=== PATIENT | female | born 1940 | race Caucasian/White ===

== ENCOUNTER 2017-02-23 09:07 | Inpatient (IN) ==
--- NOTE | 2017-02-23 09:27 | Emergency Department Note ---
Disposition Clinical Impression: Altered mental status, Fall, Frail elderly, Injury of flank, Hyperglycemia, Ketoacidosis, Renal insufficiency, Duodenal diverticulum, Diverticulosis, Liver lesion, Structural abnormality of kidney, Hyperkalemia, Abnormal EKG, Abnormal urinalysis Disposition: Admitted As Inpatient Referrals: NO,PCP [Primary Care Provider] - Forms: ED Satisfaction Letter General Adult HPI - General Chief complaint: ED Altered Mental Status Stated complaint: increased AMS Time Seen by Provider: 02/23/17 09:09 - History of Present Illness HPI Narrative: 76-year-old female with a history of dementia comes in from home, she lives with her , her daughter and granddaughter here, they are healthcare providers. They report the patient has been somewhat tremulous over the last day or so. She has been more confused than usual and they are concerned about altered mentation. She has a history of chronic back pain but does not take pain medicine for this apart from injectable steroids. The patient fell a few days ago. They report a bruise or injury to her left flank area. There is no history of head trauma directly. No history of unilateral arm weakness or numbness or convulsion. No history of fever or cough chest pain or abdominal pain. There is no history of vomiting or diarrhea. The patient is not known to be diabetic. She is not anticoagulated. There is no history of head injury. Overt confusion is the main issue. A fall is reported which occurred a few days ago with bruising as described. There is no history of upper or lower extremity pain or injury or bleeding. No rashes. No history of neck stiffness or rigidity. The patient reports her mouth is dry. She has no specific complaints otherwise. Pain Scale: 2 - Related Data Home Medications Medication Instructions Recorded Confirmed [place] 1 tab PO DAILY 02/23/17 Calcium Carbonate/Vitamin D3 1 each PO DAILY 02/23/17 02/23/17 [Calcium 600 + Vit D Softgel] Citalopram Hydrobromide 10 mg PO DAILY 02/23/17 02/23/17 [Citalopram HBr] Doxepin HCl 10 mg PO HS 02/23/17 02/23/17 Gabapentin [Neurontin] 300 mg PO QID 02/23/17 02/23/17 Lisinopril/Hydrochlorothiazide 1 each PO DAILY 02/23/17 02/23/17 [Zestoretic 20-12.5 mg Tablet] Melatonin 5 mg PO HS PRN 02/23/17 02/23/17 Memantine HCl/Donepezil HCl 1 each PO DAILY 02/23/17 02/23/17 [Namzaric 28 mg-10 mg Capsule] Metoprolol XL (24 HR) Succ [Toprol 100 mg PO DAILY 02/23/17 02/23/17 XL] Multivit-Min/Iron/Folic/Lutein 1 each PO DAILY 02/23/17 02/23/17 [Centrum Silver Women Tablet] Psyllium Husk [Daily Fiber] 0.52 gm PO DAILY 02/23/17 02/23/17 Allergies Allergy/AdvReac Type Severity Reaction Status Date / Time Penicillins Allergy Hives Verified 02/23/17 12:04 Review of Systems: The patient is confused and is unable to give a complete review of systems, family members are very helpful however and most of the history is obtained from them. Limitations: ROS unobtainable due to patients medical condition Past Medical History - Past Medical History Medical history: Reports: dementia, hypertension - Social History Smoking Status: Never smoker Smokeless Tobacco Status: No Alcohol use: Reports: none Drug use: Reports: none Physical Exam - General Limitations: no limitations General appearance: alert, in no apparent distress - Head Head exam: atraumatic, normocephalic, normal inspection, other (No claire trauma noted to the head.) - Eye Eye exam: Present: normal appearance, PERRL, EOMI. Absent: scleral icterus, conjunctival injection, miosis, mydriasis, periorbital swelling - ENT ENT exam: normal exam, normal oropharynx, mucous membranes moist, TM's normal bilaterally, normal external ear exam - Neck Neck exam: Present: normal inspection, full ROM, trachea midline. Absent: tenderness, meningismus - Chest Chest inspection: Present: symmetric chest wall rise. Absent: tenderness - Respiratory Respiratory exam: Present: normal lung sounds bilaterally. Absent: respiratory distress, wheezes, stridor, accessory muscle use, prolonged expiratory phase - Cardiovascular Cardiovascular exam: Present: regular rate, normal rhythm, normal heart sounds - Abdominal Exam Abdominal exam: Present: soft, Non-Tender, normal bowel sounds. Absent: tenderness, distention, guarding, rebound, rigidity, trauma, pulsatile mass - Extremities Exam Extremities exam: Present: normal inspection, full ROM, normal capillary refill , other (Bilateral upper extremities are without evidence of injury. Good range of motion throughout the wrist and elbows shoulders ankles knees and hips. No claire trauma to the upper or lower extremities is appreciated. All 4 extremities are warm and well perfused without cyanosis or edema. Good muscle strength in general sensation noted. The patient is able to cooperate completely with this exam.). Absent: tenderness, pedal edema, joint swelling, calf tenderness - Expanded Lower Extremity Exam Hip/Pelvis exam: Present: full ROM, pelvis stable. Absent: tenderness, deformity, external rotation, internal rotation Upper leg exam: Present: full ROM. Absent: tenderness, deformity Knee exam: Present: full ROM. Absent: tenderness, deformity Lower leg exam: Present: full ROM. Absent: tenderness, Homans' sign Ankle exam: Present: full ROM. Absent: tenderness Foot/toe exam: Present: full ROM. Absent: tenderness - Back Exam Back exam: Present: normal inspection, full ROM, other (Bruising left flank, significant tenderness noted.). Absent: tenderness, CVA tenderness (R), CVA tenderness (L), vertebral tenderness - Neurological Exam Neurological exam: Present: alert, oriented X3, CN II-XII intact. Absent: motor sensory deficit - Psychiatric Psychiatric exam: Present: normal affect - Skin Skin exam: Present: warm, dry, intact, normal color. Absent: rash, cyanosis, diaphoresis, erythema, pallor, mottled Course Vital Signs Temperature 97.3 F L 02/23/17 09:09 Pulse Rate 78 02/23/17 09:09 Respiratory Rate 18 02/23/17 09:09 Blood Pressure 173/94 02/23/17 09:09 O2 Sat by Pulse Oximetry 93 02/23/17 09:09 Temperature 97.3 F L 02/23/17 09:09 Pulse Rate 75 02/23/17 11:09 Respiratory Rate 18 02/23/17 11:09 Blood Pressure 144/75 02/23/17 11:09 O2 Sat by Pulse Oximetry 97 02/23/17 11:09 Oxygen Delivery Oxygen Delivery Nasal Cannula Medical Decision Making - MDM Narrative Medical decision making narrative: The patient has a glucose of 980, IV saline and an IV insulin drip were initiated. She demonstrates renal insufficiency and is likely significantly dehydrated. The patient has been altered in her mentation. She had a fall, CT scans and chest x-ray do not show acute traumatic findings. Based on her age, and marked metabolic abnormalities, I think the patient needs to be admitted to the hospital. I discussed the case with the hospitalist on-call who has accepted the patient to their care. The patient is currently stable pending admission. - Lab Data Lab results reviewed: Yes I reviewed the patient's lab results. Result diagrams: 02/23/17 09:38 02/23/17 09:38 Lab Results 02/23/17 02/23/17 02/23/17 Range/Units 09:30 09:30 09:38 WBC 9.9 (4.3-11.1) K/mcL RBC 4.63 (3.82-4.97) M/mcL Hgb 13.8 (11.5-15.4) g/dL Hct 42.6 (35.3-44.9) % MCV 92.0 (83.0-100.0) fL MCH 29.8 (28.0-33.3) pg MCHC 32.4 (31.6-35.5) g/dL RDW 13.8 (11.5-14.5) % Plt Count 233 (140-400) K/mcL MPV 12.6 H (9.4-12.4) fL Immature Gran % 0.4 (0-4) % Seg Neutrophils % 84.2 % Lymphocytes % 9.5 % Monocytes % 5.8 % Eosinophils % 0.0 % Basophils % 0.1 % Neutrophils # 8.3 (1.6-8.9) K/mcL Lymphocytes # 0.9 (0.6-4.6) K/mcL Monocytes # 0.6 (0.0-1.3) K/mcL Eosinophils # 0.0 (0.0-0.6) K/mcL Basophils # 0.0 (0.0-0.2) K/mcL PT (9.4-12.1) Seconds INR APTT (26.0-36.0) Seconds Sodium (136-145) mEq/L Potassium (3.5-4.5) mEq/L Chloride (98-109) mEq/L Carbon Dioxide (19-29) mEq/L BUN (7-20) mg/dL Creatinine (0.57-1.11) mg/dL Est GFR ( Amer) (> 60) Est GFR (Non-Af Amer) (> 60) BUN/Creatinine Ratio (6-26) Glucose (70-99) mg/dL Calculated Osmolality (280-300) Lactic Acid (0.5-2.2) mmol/L Calcium (8.6-10.8) mg/dL Total Bilirubin (0.2-1.2) mg/dL Direct Bilirubin (0.0-0.5) mg/dL Indirect Bilirubin (0.0-1.2) mg/dL AST (5-34) Units/L ALT (0-55) Units/L Alkaline Phosphatase (38-126) Units/L Ammonia (18-72) mcmol/L Troponin I (0-0.03) ng/mL C-Reactive Protein (Less than 5) mg/L Serum Total Protein (6.0-8.3) g/dL Albumin (3.5-5.0) g/dL Globulin (2.4-3.5) g/dL Albumin/Globulin Ratio (1.1-2.2) Beta-Hydroxybutyric Acd (0.02-0.27) mmol/L TSH (0.350-4.840) mcIU/mL Urine Color Yellow (Yellow) Urine Clarity Clear (Clear) Urine pH 5.5 (5.0-8.0) pH Units Ur Specific Husser > 1.030 H (1.010-1.025) Urine Protein Negative (Neg-Trace) mg/dL Urine Glucose (UA) >=1000 H (Normal) mg/dL Urine Ketones Trace H (Negative) mg/dL Urine Blood Small H (Negative) Urine Nitrite Negative (Negative) Urine Bilirubin Negative (Negative) Urine Urobilinogen Normal (Normal) mg/dL Ur Leukocyte Esterase Negative (Negative) Urine Microscopic RBC 0-3 (0-3) per hpf Urine Microscopic WBC 0-3 (0-3) per hpf Ur Squamous Epith Cells None Seen (None-Few) per lpf Urine Bacteria None Seen (None-Few) per hpf Hyaline Casts None Seen (None-Few) per lpf Ur Culture Indicated? NO (NO) Salicylates (15-30) mg/dL Urine Opiates Screen Negative (Jzfriv=296) ng/mL Acetaminophen (10-30) mcg/mL Ur Barbiturates Screen Negative (Nkjafc=257) ng/mL Ur Phencyclidine Scrn Negative (Cutoff=25) ng/mL Ur Amphetamines Screen Negative (Ykvcni=2071) ng/mL U Benzodiazepines Scrn Negative (Vgtjbl=376) ng/mL Urine Cocaine Screen Negative (Cutoff= 300) ng/mL U Marijuana (THC) Screen Negative (Cutoff = 50) ng/mL Ethyl Alcohol (0-10) mg/dL 02/23/17 02/23/17 02/23/17 Range/Units 09:38 09:38 09:38 WBC (4.3-11.1) K/mcL RBC (3.82-4.97) M/mcL Hgb (11.5-15.4) g/dL Hct (35.3-44.9) % MCV (83.0-100.0) fL MCH (28.0-33.3) pg MCHC (31.6-35.5) g/dL RDW (11.5-14.5) % Plt Count (140-400) K/mcL MPV (9.4-12.4) fL Immature Gran % (0-4) % Seg Neutrophils % % Lymphocytes % % Monocytes % % Eosinophils % % Basophils % % Neutrophils # (1.6-8.9) K/mcL Lymphocytes # (0.6-4.6) K/mcL Monocytes # (0.0-1.3) K/mcL Eosinophils # (0.0-0.6) K/mcL Basophils # (0.0-0.2) K/mcL PT 10.6 (9.4-12.1) Seconds INR 1.0 APTT 29.3 (26.0-36.0) Seconds Sodium 136 (136-145) mEq/L Potassium 4.9 H (3.5-4.5) mEq/L Chloride 91 L (98-109) mEq/L Carbon Dioxide 26 (19-29) mEq/L BUN 55 H (7-20) mg/dL Creatinine 2.76 H (0.57-1.11) mg/dL Est GFR ( Amer) 20 L (> 60) Est GFR (Non-Af Amer) 17 L (> 60) BUN/Creatinine Ratio 20 (6-26) Glucose 980 H* (70-99) mg/dL Calculated Osmolality 346 H (280-300) Lactic Acid (0.5-2.2) mmol/L Calcium 12.6 H (8.6-10.8) mg/dL Total Bilirubin 1.1 (0.2-1.2) mg/dL Direct Bilirubin 0.3 (0.0-0.5) mg/dL Indirect Bilirubin 0.8 (0.0-1.2) mg/dL AST 29 (5-34) Units/L ALT 54 (0-55) Units/L Alkaline Phosphatase 140 H (38-126) Units/L Ammonia 60 (18-72) mcmol/L Troponin I (0-0.03) ng/mL C-Reactive Protein 41 H (Less than 5) mg/L Serum Total Protein 8.3 (6.0-8.3) g/dL Albumin 4.3 (3.5-5.0) g/dL Globulin 4.0 H (2.4-3.5) g/dL Albumin/Globulin Ratio 1.1 (1.1-2.2) Beta-Hydroxybutyric Acd > 2.00 H (0.02-0.27) mmol/L TSH 1.134 (0.350-4.840) mcIU/mL Urine Color (Yellow) Urine Clarity (Clear) Urine pH (5.0-8.0) pH Units Ur Specific Husser (1.010-1.025) Urine Protein (Neg-Trace) mg/dL Urine Glucose (UA) (Normal) mg/dL Urine Ketones (Negative) mg/dL Urine Blood (Negative) Urine Nitrite (Negative) Urine Bilirubin (Negative) Urine Urobilinogen (Normal) mg/dL Ur Leukocyte Esterase (Negative) Urine Microscopic RBC (0-3) per hpf Urine Microscopic WBC (0-3) per hpf Ur Squamous Epith Cells (None-Few) per lpf Urine Bacteria (None-Few) per hpf Hyaline Casts (None-Few) per lpf Ur Culture Indicated? (NO) Salicylates < 5.0 L (15-30) mg/dL Urine Opiates Screen (Lkxtyu=573) ng/mL Acetaminophen < 1.0 L (10-30) mcg/mL Ur Barbiturates Screen (Nrgrte=403) ng/mL Ur Phencyclidine Scrn (Cutoff=25) ng/mL Ur Amphetamines Screen (Eixdjb=6006) ng/mL U Benzodiazepines Scrn (Ejiems=491) ng/mL Urine Cocaine Screen (Cutoff= 300) ng/mL U Marijuana (THC) Screen (Cutoff = 50) ng/mL Ethyl Alcohol < 10 (0-10) mg/dL 02/23/17 02/23/17 Range/Units 09:38 09:38 WBC (4.3-11.1) K/mcL RBC (3.82-4.97) M/mcL Hgb (11.5-15.4) g/dL Hct (35.3-44.9) % MCV (83.0-100.0) fL MCH (28.0-33.3) pg MCHC (31.6-35.5) g/dL RDW (11.5-14.5) % Plt Count (140-400) K/mcL MPV (9.4-12.4) fL Immature Gran % (0-4) % Seg Neutrophils % % Lymphocytes % % Monocytes % % Eosinophils % % Basophils % % Neutrophils # (1.6-8.9) K/mcL Lymphocytes # (0.6-4.6) K/mcL Monocytes # (0.0-1.3) K/mcL Eosinophils # (0.0-0.6) K/mcL Basophils # (0.0-0.2) K/mcL PT (9.4-12.1) Seconds INR APTT (26.0-36.0) Seconds Sodium (136-145) mEq/L Potassium (3.5-4.5) mEq/L Chloride (98-109) mEq/L Carbon Dioxide (19-29) mEq/L BUN (7-20) mg/dL Creatinine (0.57-1.11) mg/dL Est GFR ( Amer) (> 60) Est GFR (Non-Af Amer) (> 60) BUN/Creatinine Ratio (6-26) Glucose (70-99) mg/dL Calculated Osmolality (280-300) Lactic Acid 2.1 (0.5-2.2) mmol/L Calcium (8.6-10.8) mg/dL Total Bilirubin (0.2-1.2) mg/dL Direct Bilirubin (0.0-0.5) mg/dL Indirect Bilirubin (0.0-1.2) mg/dL AST (5-34) Units/L ALT (0-55) Units/L Alkaline Phosphatase (38-126) Units/L Ammonia (18-72) mcmol/L Troponin I 0.02 (0-0.03) ng/mL C-Reactive Protein (Less than 5) mg/L Serum Total Protein (6.0-8.3) g/dL Albumin (3.5-5.0) g/dL Globulin (2.4-3.5) g/dL Albumin/Globulin Ratio (1.1-2.2) Beta-Hydroxybutyric Acd (0.02-0.27) mmol/L TSH (0.350-4.840) mcIU/mL Urine Color (Yellow) Urine Clarity (Clear) Urine pH (5.0-8.0) pH Units Ur Specific Husser (1.010-1.025) Urine Protein (Neg-Trace) mg/dL Urine Glucose (UA) (Normal) mg/dL Urine Ketones (Negative) mg/dL Urine Blood (Negative) Urine Nitrite (Negative) Urine Bilirubin (Negative) Urine Urobilinogen (Normal) mg/dL Ur Leukocyte Esterase (Negative) Urine Microscopic RBC (0-3) per hpf Urine Microscopic WBC (0-3) per hpf Ur Squamous Epith Cells (None-Few) per lpf Urine Bacteria (None-Few) per hpf Hyaline Casts (None-Few) per lpf Ur Culture Indicated? (NO) Salicylates (15-30) mg/dL Urine Opiates Screen (Wjepqp=554) ng/mL Acetaminophen (10-30) mcg/mL Ur Barbiturates Screen (Zfbfqj=801) ng/mL Ur Phencyclidine Scrn (Cutoff=25) ng/mL Ur Amphetamines Screen (Eahvpm=4550) ng/mL U Benzodiazepines Scrn (Xbnyek=353) ng/mL Urine Cocaine Screen (Cutoff= 300) ng/mL U Marijuana (THC) Screen (Cutoff = 50) ng/mL Ethyl Alcohol (0-10) mg/dL - Radiology Data Radiology results reviewed: Yes I reviewed the patient's radiology results.
[2017-02-23 09:41] LABS: Bilirubin,Urine Negative (Negative); Blood,Urine Small (Negative); Clarity,Urine Clear (Clear); Color,Urine Yellow (Yellow); Glucose,Urine (UA) >=1000 mg/dL (Normal); Ketones,Urine Trace mg/dL (Negative); Leukocyte Esterase,Urine Negative (Negative); Nitrite,Urine Negative (Negative); PH,Urine 5.5 pH Units (5.0-8.0); Protein,Urine Negative (Neg-Trace); Specific Gravity,Urine > 1.030 (1.010-1.025); Urobilinogen,Urine Normal (Normal)
[2017-02-23 09:43] LABS: Bacteria,Urine None Seen per hpf (None-Few); Hyaline Casts,Urine None Seen per lpf (None-Few); RBC,Urine 0-3 per hpf (0-3); Squamous Epithelial Cell,Urine None Seen per lpf (None-Few); WBC,Urine 0-3 per hpf (0-3)
[2017-02-23 09:47] LABS: Amphetamine Screen,Urine Negative ng/mL (Cutoff=1000); Barbiturate Screen,Urine Negative ng/mL (Cutoff=200); Benzodiazepines Screen,Urine Negative ng/mL (Cutoff=200); Cannabinoid Screen,Urine Negative ng/mL (Cutoff = 50); Cocaine Screen,Urine Negative ng/mL (Cutoff= 300); Opiate Screen,Urine Negative ng/mL (Cutoff=300); Phencyclidine Screen,Urine Negative ng/mL (Cutoff=25)
[2017-02-23] MEDS: 0.9 % Sodium Chloride 1,000 ML IVC SCH ×2 (09:47→16:01)
[2017-02-23 09:49] LABS: Basophils % 0.1 %; Hematocrit 42.6 % (35.3-44.9); Hemoglobin 13.8 g/dL (11.5-15.4); Immature Granulocytes % 0.4 % (0-4); Lymphocytes # 0.9 K/mcL (0.6-4.6); Lymphocytes % 9.5 %; Mean Corpuscular HGB Conc 32.4 g/dL (31.6-35.5); Mean Corpuscular Hemoglobin 29.8 pg (28.0-33.3); Mean Platelet Volume 12.6 fL (9.4-12.4); Monocytes # 0.6 K/mcL (0.0-1.3); Monocytes % 5.8 %; Neutrophils # 8.3 K/mcL (1.6-8.9); Platelet Count 233 K/mcL (140-400); Red Blood Count 4.63 M/mcL (3.82-4.97); Red Cell Distribution Width 13.8 % (11.5-14.5); Segmented Neutrophils % 84.2 %
[2017-02-23 09:54] LABS: Prothrombin Time 10.6 Seconds (9.4-12.1)
[2017-02-23 09:56] LABS: Activated Partial Thrombo Time 29.3 Seconds (26.0-36.0)
[2017-02-23 10:16] LABS: Alanine Aminotransferase 54 Units/L (0-55); Albumin 4.3 g/dL (3.5-5.0); Albumin/Globulin Ratio 1.1 (1.1-2.2); Alkaline Phosphatase 140 Units/L (38-126); Aspartate Amino Transferase 29 Units/L (5-34); BUN/Creatinine Ratio 20 (6-26); Bilirubin,Direct 0.3 mg/dL (0.0-0.5); Bilirubin,Indirect 0.8 mg/dL (0.0-1.2); Bilirubin,Total 1.1 mg/dL (0.2-1.2); Blood Urea Nitrogen 55 mg/dL (7-20); Calcium 12.6 mg/dL (8.6-10.8); Carbon Dioxide 26 mEq/L (19-29); Chloride 91 mEq/L (98-109); Potassium 4.9 mEq/L (3.5-4.5); Sodium 136 mEq/L (136-145); Total Protein 8.3 g/dL (6.0-8.3); eGFR For African Americans 20 (> 60); eGFR For Non-African Americans 17 (> 60)
[2017-02-23 10:17] LABS: Beta-Hydroxybutyric Acid > 2.00 mmol/L (0.02-0.27)
[2017-02-23 10:20] LABS: Acetaminophen < 1.0 mcg/mL (10-30); Ethanol < 10 mg/dL (0-10); Salicylate < 5.0 mg/dL (15-30)
[2017-02-23 10:26] LABS: Osmolality,Calculated 346 (280-300)
[2017-02-23 10:29] LABS: Glucose 980 mg/dL (70-99)
[2017-02-23 10:37] LABS: Thyroid Stimulating Hormone 1.134 mcIU/mL (0.350-4.840)
[2017-02-23 10:39] LABS: C-Reactive Protein 41 mg/L (Less than 5)
[2017-02-23] MEDS ORDERED: 0.9 % Sodium Chloride 1,000 ML IVC ONE ×3 (10:39→11:26)
[2017-02-23] MEDS: Insulin Human Regular 100 UNIT in 0.9 % Sodium Chloride 100 ML IVC SCH (11:31)
[2017-02-23] MEDS ORDERED: Naloxone 0.4 MG/ML INJ IVP PRN (13:48)
[2017-02-23] MEDS ORDERED: *HR* Dextrose 50 % in Water (Syg) 50 ML SYRINGE IVP PRN (13:54)
--- NOTE | 2017-02-23 14:04 | Internal Med History&Physical ---
<Sandra Eric - Last Filed: 02/23/17 14:33> Date of Encounter: 02/23/17 Time of Encounter: 14:04 Assessment and Plan (1) Hyperosmolar non-ketotic state in patient with type 2 diabetes mellitus Current visit: Yes Status: Acute 1 patient has been expressing increased confusion and falls thirst urination. On presentation her glucose was 980 history of diabetes. Patient has recently received steroid injections for chronic back pain. Patient's anion gap is 19 lactate is 2.1. Hydroxyzine is greater than 2 We will obtain a stat A1c, as well as venous blood gas 2 we will initiate DKA/ HHS protocol she is on insulin drip at this time continue with IV fluids patient does appear clinically dry. 3 we will monitor electrolytes every 4 hours and replace as needed 4 continue nothing by mouth status 5 monitor intake output daily weights (2) KAYKAY (acute kidney injury) Current visit: Yes Status: Acute 1 patient's creatinine on presentation is 2.76 unsure of baseline however patient does appear clinically dry as well as she is on diuretic and ranjan inhibitor. We will continue to monitor creatinine 2 we will give IV fluids 3 we will hold diuretic and RANJAN inhibitor for now resumed once back to baseline 4 avoid nephrotoxins 5 monitor intake and output daily weights (3) HTN (hypertension) Current visit: Yes Status: Acute 1 presently creatinine is elevated we will hold hydrochlorothiazide and lisinopril for now we will continue with metoprolol. Qualifiers: Hypertension type: essential hypertension Qualified Code(s): I10 - Essential (primary) hypertension (4) Altered mental status Current visit: Yes Status: Acute 1 patient has a history of dementia however the past few days she has noted increasing confusion as well as falls. Suspect this is related to HHS. We will treat HHS per protocol continue to monitor mental state 2 fall precautions 3 neurochecks Qualifiers: Altered mental status type: unspecified Qualified Code(s): R41.82 - Altered mental status, unspecified (5) DVT prophylaxis Current visit: Yes Status: Acute 1 heparin subcutaneous Internal Medicine - H&P: HPI Chief complaint: Confusion Admitted From: Emergency Dept Plans for Post Hospital Care: Home History of present illness: Ms. Blanco is a 76 year old female hypertension dementia chronic back pain. According to family patient has history of dementia and lives with her over the past couple of days she has been experiencing increased episodes of confusion as well as being somewhat tremulous. They have also noted that she has urinary frequency as well as increased thirst. The patient did have a unwitnessed fall a few days ago onto her left hip. No head injury or loss of consciousness She does have chronic back pain and this past week she received steroid injections. No history of cough fever vomiting or diarrhea she is not on any anticoagulation. Family became concerned due to increased confusion and brought her to the ER for evaluation. According to ER records lab work did reveal elevated glucose at 980 BUN was 55 creatinine 2.76 No Leukocytosis urine specific gravity greater than 1.030 urine glucose greater than thousand and a trace amount of ketones in urine as well as small blood. Lactate was 2 beta hydroxy 2. Radiologic workup completed which is negative-patient was initiated on insulin drip and given IV fluids she has been admitted for further workup and evaluation. Presently patient is alert pleasantly confused she does follow simple commands cranial nerves II through XII are intact. Her mucous membranes are dry her, tongue is coated white. Lungs sounds are clear heart sounds are regular S1-S2 with no rubs clicks gallops murmurs noted no extremity edema. She is hemodynamically stable at this time. I review this case with who agrees with plan. Past Med Surg Social Fam HX - Past Medical History Medical history: dementia, hypertension - Social History Smoking Status: Never smoker Smokeless Tobacco Status: No Alcohol use: none Drug use: none - Family History Mother Living Status: Cause of : Cancer Father Living Status: Cause of : Heart disease Internal Medicine - H&P: Meds [place]ett 1 tab PO DAILY 02/23/17 [History] Calcium Carbonate/Vitamin D3 [Calcium 600 + Vit D Softgel] 1 each PO DAILY 02/23 [History] Citalopram Hydrobromide [Citalopram HBr] 10 mg PO DAILY 02/23/17 [History] Doxepin HCl 10 mg PO HS 02/23/17 [History] Gabapentin [Neurontin] 300 mg PO QID 02/23/17 [History] Lisinopril/Hydrochlorothiazide [Zestoretic 20-12.5 mg Tablet] 1 each PO DAILY [History] Melatonin 5 mg PO HS PRN 02/23/17 [History] Memantine HCl/Donepezil HCl [Namzaric 28 mg-10 mg Capsule] 1 each PO DAILY 02/23 [History] Metoprolol XL (24 HR) Succ [Toprol XL] 100 mg PO DAILY 02/23/17 [History] Multivit-Min/Iron/Folic/Lutein [Centrum Silver Women Tablet] 1 each PO DAILY [History] Psyllium Husk [Daily Fiber] 0.52 gm PO DAILY 02/23/17 [History] Allergies Penicillins Allergy (Verified 02/23/17 12:04) Hives ROS unobtainable: due to mental status All Systems PM: A 10-system review of systems was performed and is negative for pertinent findings except as documented above in the HPI. - Constitutional Vitals: Temp Pulse Resp BP Pulse Ox 97.3 F L 81 8 133/94 98 02/23/17 09:09 02/23/17 13:09 02/23/17 13:09 02/23/17 13:09 02/23/17 13:09 General appearance: Present: A&O X 1, pleasant - Head Head exam: Present: atraumatic, normocephalic - Eye Eye exam: Present: PERRL, conjuntiva pink, sclera anicteric Pupils: Present: PERRL - Respiratory Respiratory exam: Present: CTAB. Absent: accessory muscle use, rales, rhonchi, wheezes - Cardiovascular Cardiovascular exam: Present: RRR, +S1, +S2. Absent: diastolic murmur, gallop, rubs, systolic murmur - GI/Abdominal GI/Abdominal exam: Present: normal bowel sounds, soft, no peritoneal signs. Absent: distended, tenderness - Extremities Exam Extremities exam: Present: warm, radial pulses palpable and symetrical. Absent : calf tenderness, cyanotic, pedal edema - Neurological Exam Neurological exam: Present: CN II-XII intact, oriented X3, no focal deficits. Absent: pronater drift, facial droop, speech deficit - Skin Skin exam: Present: dry, intact Internal Med - H&P Results - Labs CBC & Chem 7: 02/23/17 09:38 02/23/17 09:38 Labs: Short CBC 02/23/17 Range/Units 09:38 WBC 9.9 (4.3-11.1) K/mcL Hgb 13.8 (11.5-15.4) g/dL Hct 42.6 (35.3-44.9) % Plt Count 233 (140-400) K/mcL Neutrophils # 8.3 (1.6-8.9) K/mcL BMP 02/23/17 09:38 Sodium 136 Potassium 4.9 H Chloride 91 L Carbon Dioxide 26 BUN 55 H Creatinine 2.76 H Glucose 980 H* Calcium 12.6 H Cardiac Enzymes 02/23/17 Range/Units 09:38 Troponin I 0.02 (0-0.03) ng/mL Liver Function 02/23/17 Range/Units 09:38 Total Bilirubin 1.1 (0.2-1.2) mg/dL Direct Bilirubin 0.3 (0.0-0.5) mg/dL AST 29 (5-34) Units/L ALT 54 (0-55) Units/L Alkaline Phosphatase 140 H (38-126) Units/L Albumin 4.3 (3.5-5.0) g/dL Urine 02/23/17 Range/Units 09:30 Urine Color Yellow (Yellow) Urine Clarity Clear (Clear) Urine pH 5.5 (5.0-8.0) pH Units Ur Specific Jarratt > 1.030 H (1.010-1.025) Urine Protein Negative (Neg-Trace) mg/dL Urine Glucose (UA) >=1000 H (Normal) mg/dL - EKG Data EKG shows normal: sinus rhythm - Impressions ITS Impressions Head CT 02/23/17 09:24 IMPRESSION: No acute intracranial abnormality. Generalized volume loss and probable sequela of chronic small vessel disease. Mild left ethmoid air cell disease. D/ / Rae Pettit MD / Rae Pettit MD Interpreting Provider: Rae Pettit MD Chest X-Ray 02/23/17 09:26 IMPRESSION: 1. No acute cardiopulmonary disease. D/ / Sarah Brunson MD / Sarah Brunson MD Interpreting Provider: Sarah Brunson MD Lumbar Spine CT 02/23/17 09:43 IMPRESSION: 1. No acute intra-abdominal injury. 2. No acute fracture including the lumbar spine. 3. Severe diverticulosis. 4. Nonspecific low-attenuation of the liver measuring 2.1 x 1.1 cm. Finding is of doubtful clinical significance in a patient with no history of malignancy, likely representing a cyst, hemangioma, or focal fat. If patient has known malignancy, dedicated MRI with Gadavist can be performed. 5. Hepatic steatosis. 6. Nonobstructing right nephrolithiasis versus parenchymal calcification identified in the upper pole. 7. Incidental note of a large duodenal diverticulum. D/ / 02/23/2017 12:31:21 Sarah Brunson MD / zachery Interpreting Provider: Sarah Brunson MD Cervical Spine CT 02/23/17 09:44 IMPRESSION: No acute abnormality of the cervical spine. Left thyroid nodule. Consider ultrasound for better characterization D/ / Mehrdad Kasper MD / Mehrdad Kasper MD Interpreting Provider: Mehrdad Kasper MD Abdomen/Pelvis CT 02/23/17 10:33 IMPRESSION: 1. No acute intra-abdominal injury. 2. No acute fracture including the lumbar spine. 3. Severe diverticulosis. 4. Nonspecific low-attenuation of the liver measuring 2.1 x 1.1 cm. Finding is of doubtful clinical significance in a patient with no history of malignancy, likely representing a cyst, hemangioma, or focal fat. If patient has known malignancy, dedicated MRI with Gadavist can be performed. 5. Hepatic steatosis. 6. Nonobstructing right nephrolithiasis versus parenchymal calcification identified in the upper pole. 7. Incidental note of a large duodenal diverticulum. D/ / 02/23/2017 12:31:21 Sarah Brunson MD / zachery Interpreting Provider: Sarah Brunson MD - Diagnostic Studies Other Images Additional comments: Head CT 02/23/17 09:24 IMPRESSION: No acute intracranial abnormality. Generalized volume loss and probable sequela of chronic small vessel disease. Mild left ethmoid air cell disease. D/ / Rae Pettit MD / Rae Pettit MD Interpreting Provider: Rae Pettit MD Chest X-Ray 02/23/17 09:26 IMPRESSION: 1. No acute cardiopulmonary disease. D/ / Sarah Brunson MD / Sarah Brunson MD Interpreting Provider: Sarah Brunson MD Lumbar Spine CT 02/23/17 09:43 IMPRESSION: 1. No acute intra-abdominal injury. 2. No acute fracture including the lumbar spine. 3. Severe diverticulosis. 4. Nonspecific low-attenuation of the liver measuring 2.1 x 1.1 cm. Finding is of doubtful clinical significance in a patient with no history of malignancy, likely representing a cyst, hemangioma, or focal fat. If patient has known malignancy, dedicated MRI with Gadavist can be performed. 5. Hepatic steatosis. 6. Nonobstructing right nephrolithiasis versus parenchymal calcification identified in the upper pole. 7. Incidental note of a large duodenal diverticulum. D/ / 02/23/2017 12:31:21 Sarah Brunson MD / zachery Interpreting Provider: Sarah Brunson MD Cervical Spine CT 02/23/17 09:44 IMPRESSION: No acute abnormality of the cervical spine. Left thyroid nodule. Consider ultrasound for better characterization D/ / Mehrdad Kasper MD / Mehrdad Kasper MD Interpreting Provider: Mehrdad Kasper MD Abdomen/Pelvis CT 02/23/17 10:33 IMPRESSION: 1. No acute intra-abdominal injury. 2. No acute fracture including the lumbar spine. 3. Severe diverticulosis. 4. Nonspecific low-attenuation of the liver measuring 2.1 x 1.1 cm. Finding is of doubtful clinical significance in a patient with no history of malignancy, likely representing a cyst, hemangioma, or focal fat. If patient has known malignancy, dedicated MRI with Gadavist can be performed. 5. Hepatic steatosis. 6. Nonobstructing right nephrolithiasis versus parenchymal calcification identified in the upper pole. 7. Incidental note of a large duodenal diverticulum. D/ / 02/23/2017 12:31:21 Sarah Brunson MD / zachery Interpreting Provider: Sarah Brunson MD <Arthur Olmedo - Last Filed: 02/23/17 19:05> Date of Encounter: 02/23/17 Internal Medicine - H&P: HPI History of present illness: Ms. Blanco is a 76 year old female All Systems PM: A 10-system review of systems was performed and is negative for pertinent findings except as documented above in the HPI. - Constitutional Vitals: Temp Pulse Resp BP Pulse Ox 98.1 F 77 19 110/88 94 02/23/17 16:02 02/23/17 18:55 02/23/17 16:02 02/23/17 16:02 02/23/17 18:55 Internal Med - H&P Results - Labs CBC & Chem 7: 02/23/17 09:38 02/23/17 15:55 - Attending Attestation I examined this patient and my medical decision-making was reviewed with the Advanced Practice Nurse. I agree with the documented findings, disposition and treatment plan as described except to the extent set forth below. She appears in no acute distress, pleasantly confused. Heart is regular with normal S1-S2 no murmurs. Plan: IV fluids, insulin ip per protocol. Fall precautions. PT OT evaluation. Avoid nephrotoxins. Obtain kidney ultrasound. Check hemoglobin A1c.
[2017-02-23 14:17] LABS: VBG HCO3 32.2 mEq/L (21-27); VBG PH 7.33 pH Units (7.32-7.42)
[2017-02-23 14:23] LABS: Estimated Average Glucose > 355 mg/dl; Hemoglobin A1C >= 14.1 %
[2017-02-23 16:18] LABS: Calcium 11.1 mg/dL (8.6-10.8); Potassium 3.7 mEq/L (3.5-4.5)
[2017-02-23] MEDS ORDERED: Gabapentin 300 MG CAPSULE PO SCH (17:00)
[2017-02-23] MEDS: Gabapentin 100 MG CAPSULE PO SCH ×2 (18:43→20:24)
[2017-02-23] MEDS: Nystatin SUSP 5 ML UD.LIQ PO SCH ×2 (18:44→20:17)
[2017-02-23] MEDS: *HR* Heparin 5,000 UNIT/ML VIAL SQ SCH (18:44)
[2017-02-23 20:38] LABS: Calcium 10.5 mg/dL (8.6-10.8); Potassium 4.2 mEq/L (3.5-4.5)
[2017-02-23] MEDS ORDERED: 0.45 % Sodium Chloride w/KCl 20 MEQ/1,000 ML MLS IVC PRN (21:11)
[2017-02-23] MEDS ORDERED: 0.9 % Sodium Chloride w KCl 20 MEQ/1,000 ML MLS IVC PRN (21:11)
[2017-02-23] MEDS ORDERED: 0.9 % Sodium Chloride 1,000 ML IVC PRN (21:11)
[2017-02-23 22:18] LABS: Calcium 10.4 mg/dL (8.6-10.8); Potassium 4.5 mEq/L (3.5-4.5)
[2017-02-23] MEDS ORDERED: D5% in 0.45% NACL 1,000 ML IVC PRN (22:21)
[2017-02-23] MEDS ORDERED: D5% in 0.45% NACL w KCl 20 MEQ/1,000 ML MLS IVC ONE (22:29)
[2017-02-23] MEDS: D5% in 0.45% NACL w KCl 20 MEQ/1,000 ML MLS IVC PRN (22:31)
[2017-02-24] MEDS ORDERED: *HR* LORazepam 2 MG/ML VIAL IVP ONE (00:44)
[2017-02-24] MEDS: D5% in 0.45% NACL w KCl 20 MEQ/1,000 ML MLS IVC PRN (02:54)
[2017-02-24] MEDS: Insulin Human Regular 100 UNIT in 0.9 % Sodium Chloride 100 ML IVC SCH (02:55)
[2017-02-24 05:07] LABS: Basophils % 0.1 %; Eosinophils % 0.1 %; Hematocrit 33.1 % (35.3-44.9); Hemoglobin 10.8 g/dL (11.5-15.4); Immature Granulocytes % 0.8 % (0-4); Lymphocytes # 2.4 K/mcL (0.6-4.6); Lymphocytes % 21.7 %; Mean Corpuscular HGB Conc 32.6 g/dL (31.6-35.5); Mean Corpuscular Hemoglobin 30.4 pg (28.0-33.3); Mean Corpuscular Volume 93.2 fL (83.0-100.0); Mean Platelet Volume 12.4 fL (9.4-12.4); Monocytes # 0.8 K/mcL (0.0-1.3); Monocytes % 6.9 %; Neutrophils # 7.7 K/mcL (1.6-8.9); Platelet Count 184 K/mcL (140-400); Red Blood Count 3.55 M/mcL (3.82-4.97); Red Cell Distribution Width 13.9 % (11.5-14.5); Segmented Neutrophils % 70.4 %
[2017-02-24 05:23] LABS: Calcium 9.7 mg/dL (8.6-10.8); Magnesium 1.9 mg/dL (1.6-2.6); Potassium 3.6 mEq/L (3.5-4.5)
[2017-02-24] MEDS: *HR* Heparin 5,000 UNIT/ML VIAL SQ SCH ×2 (06:20→18:41)
[2017-02-24 08:12] LABS: Calcium 9.5 mg/dL (8.6-10.8); Potassium 3.8 mEq/L (3.5-4.5)
[2017-02-24] MEDS: Metoprolol XL (24 HR) Succ 50 MG TAB.ER.24H PO SCH (09:15)
[2017-02-24] MEDS: Nystatin SUSP 5 ML UD.LIQ PO SCH ×4 (09:15→22:04)
[2017-02-24] MEDS: Gabapentin 100 MG CAPSULE PO SCH ×2 (09:16→22:04)
[2017-02-24] MEDS: MEMANTINE HCL PO SCH (09:16)
[2017-02-24] MEDS: DONEPEZIL HCL PO SCH (09:16)
[2017-02-24] MEDS: Insulin DETEMIR 100 UNIT/ML X5UNITS SQ SCH ×2 (10:03→22:04)
--- NOTE | 2017-02-24 10:06 | Internal Med Progress Note ---
Date of Encounter: 02/24/17 Time of Encounter: 10:03 - Assessment and plan (1) Gram-negative bacteremia Current Visit: Yes Status: Acute Assessment and plan: Patient presented with HHS, several days of worsening mental status Afebrile, no leukocytosis UA is clean, no UTI CXR is unremarkable Patient will be started on Ceftriaxone 2g daily Repeat blood cultures ordered Patient has no SIRS/Sepsis symptoms/Criteria At this time, the source of bacteremia is unknown Obtain TTE Consult Infectious disease team (2) Altered mental status Current Visit: Yes Status: Acute Assessment and plan: Patient has dementia at baseline and is pleasantly confused AMS possibly from HHS Improving as spouse states patient is at he4r baseline Qualifiers: Altered mental status type: unspecified Qualified Code(s): R41.82 - Altered mental status, unspecified (3) Hyperosmolar non-ketotic state in patient with type 2 diabetes mellitus Current Visit: Yes Status: Acute Assessment and plan: Improving Bridge with SQ insulin Feed patient Continue to monitor Chem (4) KAYKAY (acute kidney injury) Current Visit: Yes Status: Acute Assessment and plan: Serum Cr and GFR improving Patient possibly has CKD, baseline unknown KAYKAY is pre-renal non-oliguric from dehydration and [facility] Continue to monitor chem Safe to d/c IVF Follow renal USS Encourage liberal fluid intake po (5) HTN (hypertension) Current Visit: Yes Status: Chronic Assessment and plan: Uncontrolled Home BB resumed, hold ACEI/HCTZ Started on Norvasc Continue to monitor Qualifiers: Hypertension type: essential hypertension Qualified Code(s): I10 - Essential (primary) hypertension (6) DVT prophylaxis Current Visit: Yes Status: Acute Assessment and plan: Heparin SQ - Subjective Interval history: 76 F with PMH of HTN and Dementia Admitted for worsening AMS , HHS , KAYKAY She is seen and evaluated at bedside with spouse Asleep but rousable, pleasantly confused, oriented to person only Per spouse at bedside, she is at her baseline Will bridge with SQ insulin and feed, CT noted for possible nephrolithiasis Renal USS is pending Blood culture with GNR, E.coli, afebrile, no tachycardia, no SIRS criteria, - Constitutional Vitals: Temp Pulse Resp BP Pulse Ox 97.6 F 76 16 151/55 95 02/24/17 07:26 02/24/17 09:13 02/24/17 07:26 02/24/17 07:26 02/24/17 09:13 General appearance: Present: A&O X 1, pleasant Exam: Asleep but rousable - Head Head exam: Present: atraumatic, normocephalic - Eye Eye exam: Present: PERRL, conjuntiva pink, sclera anicteric Pupils: Present: PERRL - Neck Neck exam general surgery: Present: supple, trachea midline. Absent: lymphadenopathy - Respiratory Respiratory exam: Present: CTAB. Absent: accessory muscle use, rales, rhonchi, wheezes - Cardiovascular Cardiovascular exam: Present: RRR, +S1, +S2. Absent: diastolic murmur, gallop, rubs, systolic murmur - GI/Abdominal GI/Abdominal exam: Present: normal bowel sounds, soft, no peritoneal signs. Absent: distended, tenderness - Extremities Exam Extremities exam: Present: warm, radial pulses palpable and symetrical. Absent : calf tenderness, cyanotic, pedal edema - Neurological Exam Neurological exam: Present: alert, CN II-XII intact, no focal deficits. Absent : pronater drift, facial droop, speech deficit - Skin Skin exam: Present: dry Internal Medicine: Result - Labs CBC & Chem 7: 02/24/17 04:05 02/24/17 07:49 Labs: Short CBC 02/24/17 Range/Units 04:05 WBC 10.9 (4.3-11.1) K/mcL Hgb 10.8 L D (11.5-15.4) g/dL Hct 33.1 L (35.3-44.9) % Plt Count 184 (140-400) K/mcL Neutrophils # 7.7 (1.6-8.9) K/mcL BMP 02/23/17 02/23/17 02/24/17 20:04 21:40 04:05 Sodium 149 H 148 H 148 H Potassium 4.2 4.5 3.6 Chloride 109 111 H 112 H Carbon Dioxide 29 28 27 BUN 43 H 40 H 33 H Creatinine 1.67 H 1.53 H 1.28 H Glucose 261 H 193 H 108 H Calcium 10.5 10.4 9.7 02/24/17 07:49 Sodium 146 H Potassium 3.8 Chloride 111 H Carbon Dioxide 28 BUN 29 H Creatinine 1.15 H Glucose 118 H Calcium 9.5 Cardiac Enzymes 02/23/17 02/24/17 Range/Units 21:40 04:05 Troponin I 0.03 0.01 (0-0.03) ng/mL - ABG Interpretation ABG results: PT/INR, D-dimer PT 10.6 Seconds (9.4-12.1) 02/23/17 09:38 Consult Discharge Plan - Plan Referrals: Kentrell Roy Jr, MD [Primary Care Provider] - 03/03/17 11:00 am
[2017-02-24] MEDS: Insulin LISPRO 300 UNITS/3 ML VIAL SQ SCH ×2 (12:31→16:54)
[2017-02-24 13:57] LABS: Acinetobacter baumannii by PCR Not Detected (Not Detect); Candida albicans by PCR Not Detected (Not Detect); Candida glabrata by PCR Not Detected (Not Detect); Candida krusei by PCR Not Detected (Not Detect); Candida parapsilosis by PCR Not Detected (Not Detect); Candida tropicalis by PCR Not Detected (Not Detect); Enterococcus by PCR Not Detected (Not Detect); Escherichia coli by PCR ***DETECTED*** (Not Detect); Klebsiella oxytoca by PCR Not Detected (Not Detect); Klebsiella pneumoniae by PCR Not Detected (Not Detect); Pseudomonas aeruginosa by PCR Not Detected (Not Detect); Serratia marcescens by PCR Not Detected (Not Detect); Staphylococcus aureus by PCR Not Detected (Not Detect); Streptococcus agalactiae(B)PCR Not Detected (Not Detect); Streptococcus by PCR Not Detected (Not Detect); Streptococcus pneumoniae PCR Not Detected (Not Detect); Streptococcus pyogenes (A) PCR Not Detected (Not Detect); blaKPC Carbapenem-Resist Gene Not Detected (Not Detect)
[2017-02-24] MEDS: amLODIPine 5 MG TABLET PO SCH (16:53)
[2017-02-25 03:05] LABS: Calcium 9.2 mg/dL (8.6-10.8); Potassium 4.3 mEq/L (3.5-4.5)
[2017-02-25] MEDS: *HR* Heparin 5,000 UNIT/ML VIAL SQ SCH ×2 (06:02→17:08)
[2017-02-25 08:49] LABS: Basophils % 0.2 %; Eosinophils # 0.1 K/mcL (0.0-0.6); Eosinophils % 0.8 %; Hematocrit 36.7 % (35.3-44.9); Hemoglobin 12.2 g/dL (11.5-15.4); Immature Granulocytes % 0.5 % (0-4); Lymphocytes # 2.6 K/mcL (0.6-4.6); Lymphocytes % 29.9 %; Mean Corpuscular HGB Conc 33.2 g/dL (31.6-35.5); Mean Corpuscular Hemoglobin 30.3 pg (28.0-33.3); Mean Corpuscular Volume 91.1 fL (83.0-100.0); Monocytes # 0.6 K/mcL (0.0-1.3); Monocytes % 6.8 %; Neutrophils # 5.3 K/mcL (1.6-8.9); Platelet Count 176 K/mcL (140-400); Red Blood Count 4.03 M/mcL (3.82-4.97); Red Cell Distribution Width 13.4 % (11.5-14.5); Segmented Neutrophils % 61.8 %
[2017-02-25] MEDS: Nystatin SUSP 5 ML UD.LIQ PO SCH ×4 (08:49→19:37)
[2017-02-25] MEDS: Insulin DETEMIR 100 UNIT/ML X5UNITS SQ SCH ×2 (08:49→21:42)
[2017-02-25] MEDS: Metoprolol XL (24 HR) Succ 50 MG TAB.ER.24H PO SCH (08:49)
[2017-02-25] MEDS: Gabapentin 100 MG CAPSULE PO SCH ×2 (08:50→19:37)
[2017-02-25] MEDS: amLODIPine 5 MG TABLET PO SCH (08:50)
[2017-02-25] MEDS: MEMANTINE HCL PO SCH (08:52)
[2017-02-25] MEDS: DONEPEZIL HCL PO SCH (08:52)
[2017-02-25] MEDS: Insulin LISPRO 300 UNITS/3 ML VIAL SQ SCH ×5 (08:52→21:41)
[2017-02-25] MEDS ORDERED: D5% in Water 1,000 ML IVC PRN (12:22)
[2017-02-25] MEDS ORDERED: *HR* Dextrose 50 % in Water (Syg) 50 ML SYRINGE IVP PRN (12:22)
[2017-02-25] MEDS ORDERED: Dextrose Gel 15 GM PO PRN ×2 (12:22)
--- NOTE | 2017-02-25 13:39 | Infectious Disease Consult ---
Date of Encounter: 02/25/17 Time of Encounter: 13:31 Assessment and Plan (1) Sepsis Status: Acute Assessment and plan: The patient had two SIRS criteria including one episode of fever and tachycardia. Likely secondary to bacteremia. Improved. The patient has not had any further tachycardia or fever. Blood cultures drawn 02/23/17 are positive 1/2 sets for E. coli. Repeat blood cultures drawn 02/24/17 are pending x 2 sets. Qualifiers: Sepsis type: Escherichia coli Qualified Code(s): A41.51 - Sepsis due to Escherichia coli [E. coli] (2) Gram-negative bacteremia Status: Acute Assessment and plan: Causative organism E. coli per PCR. Source unclear. The patient has no sepsis criteria. UA negative. Abdominal exam benign. CT of the abdomen and pelvis without contrast shows a liver lesion of unknown significance. There is severe diverticulosis noted on the CT as well, but no evidence of diverticulitis. CXR negative. The patient has no indwelling lines. Blood cultures drawn 02/23/17 are positive 1/2 sets for GNR. PCR picked up E. coli. Final ID and sensitivities are pending. Repeat blood cultures in the AM x 2 sets. Continue Rocephin 2 grams IV daily for now. Duration of treatment depends on the clinical picture. (3) Hyperosmolar non-ketotic state in patient with type 2 diabetes mellitus Status: Acute Assessment and plan: Secondary to undiagnosed/untreated diabetes. Improved. Management per the primary team. (4) KAYKAY (acute kidney injury) Status: Acute Assessment and plan: Serum creatinine 2.76 on admission. Likely secondary to poor PO intake/dehydration. Resolved. Continue to trend. (5) Altered mental status Status: Acute Assessment and plan: Likely multifactorial --> dementia + hyperglycemia + bacteremia CT head negative. According to the patient's , the patient appears to be back at baseline. Qualifiers: Altered mental status type: unspecified Qualified Code(s): R41.82 - Altered mental status, unspecified (6) Liver lesion Status: Acute Assessment and plan: CT of the abdomen and pelvis without contrast shows a 2.1 x 1.1 cm low- attenuation liver lesion. Etiology unclear. Abdominal exam benign. (7) Fall Status: Acute Assessment and plan: Unwitnessed, but per the patient's , the patient fell in the bathroom a few days prior to admission. Mechanism of fall unclear, but patient denies injury. CT of the C-spine and L-spine negative for acute abnormality. Continue falls precautions and utilize bed alarm when patient alone in the room. Qualifiers: Encounter type: initial encounter Qualified Code(s): W19.XXXA - Unspecified fall, initial encounter (8) Duodenal diverticulum Status: Chronic Assessment and plan: Noted on CT of the abdomen and pelvis. No evidence of perforation or diverticulitis. (9) Diverticulosis Status: Chronic Qualifiers: Diverticulosis site: unspecified location Diverticulosis bleeding: diverticulosis with bleeding Qualified Code(s): K57.91 - Diverticulosis of intestine, part unspecified, without perforation or abscess with bleeding (10) HTN (hypertension) Status: Chronic Qualifiers: Hypertension type: essential hypertension Qualified Code(s): I10 - Essential (primary) hypertension Infectious Disease HPI - Data of Consult Patient: new to practice Consult date: 02/25/17 Requesting Physician: Edith Koch MD Primary Care Provider: Kentrell Roy Jr, MD - Consult Narrative Reason for consult: Gram negative bacteremia History of present illness: Ms. Blanco is a 76 year old female with a past medical history of chronic back pain, dementia, and hypertension. The patient was admitted to the hospital with altered mental status and hyperglycemia. We are consulted February 25 for further evaluation and treatment recommendations regarding gram-negative bacteremia. The patient is a 76-year-old female past medical history as stated above. The patient is somewhat of a poor historian due to her dementia, therefore, most of the information is obtained from the medical record and her who is at the bedside. Apparently, the patient presented to the emergency department with a one-week history of worsening altered mental status. The patient had fallen while in the bathroom approximately 3 days prior to presentation. Upon arrival, the patient was afebrile and hemodynamically stable. Laboratory studies revealed a normal white blood cell count and an acute kidney injury. Additionally, her blood glucose was elevated at 980. Ammonia level was normal. CRP was mildly elevated at 41. Troponin was negative. Lactic acid was elevated at 2.1 with subsequent values of 4.7 and 2.5. Urinalysis was obtained that was negative for pyuria, was positive for glucose and ketones. Urine drug screen was negative. CT of the head, chest x-ray, L-spine, and C-spine were all essentially negative. CT the abdomen and pelvis did show severe diverticulosis and a low attenuation liver lesion measuring approximately 2.1 x 1.1 cm. There is also evidence of hepatic steatosis and nonobstructing nephrolithiasis. Blood cultures were obtained 2 sets. The patient was admitted to the hospital for further evaluation and treatment. Since admission, the patient has remained afebrile and hemodynamically stable. Her white blood cell count has remained normal. Her acute kidney injury has resolved. Blood cultures obtained in the ER if come back +1 out of 2 sets for gram-negative rods, the PCR picked up Escherichia coli. Retroperitoneal ultrasound was negative. The patient was started on IV Rocephin by the primary team. We've been asked to evaluate and make further recommendations. During my exam today, the patient is sitting up in the bedside chair with no complaints. According to the , she was in her usual state of health until about a week ago when she's had progressively worsening confusion, tremors , and altered behavior. The patient denies any fevers or chills or rigors. She denies any headache or neck pain. She reports chronic nasal drainage that is clear, but denies any earache or sore throat. She denies any chest pain, shortness of breath, or cough. She denies any nausea, vomiting, diarrhea, or constipation. According to the patient's , she does have some intermittent diarrhea that is nonbloody, but nothing every day. The patient denies any abdominal pain. The patient's does report that she has been extremely thirsty and drinking a lot of water recently, but her appetite has not been very good. She does report some urinary frequency, but denies any dysuria, suprapubic pain, or hematuria. She denies pain in her extremities. She for chronic back pain for which she received a steroid injection last week. She denies any oral thrush or new skin lesions. The patient was at home with her . She denies any alcohol, drug, or tobacco use. She denies any recent travel outside [facility]. CC: Edith Koch MD Past Med Surg Social Fam HX - Past Medical History Attestation: Yes The following information was validated with the patient. Source: patient, old records reviewed, obtained from family, nursing notes reviewed Medical history: dementia, hypertension Psychiatric history: other - Past Surgical History Surgical History: hysterectomy - Social History Smoking Status: Never smoker Smokeless Tobacco Status: No Alcohol use: none Drug use: none Occupational status: unemployed Current living situation: Home, With Family Activity Level: Independent ambulation Recent Out of Country Travel Within the Last 8 Weeks: No Exposure or Possible Exposure to Illness During Travel: No - Family History Mother Living Status: Cause of : Cancer Father Living Status: Cause of : Heart disease Infectious Disease-CN:Meds [place] 1 tab PO DAILY 02/23/17 [History] Calcium Carbonate/Vitamin D3 [Calcium 600 + Vit D Softgel] 1 each PO DAILY 02/23 [History] Citalopram Hydrobromide [Citalopram HBr] 10 mg PO DAILY 02/23/17 [History] Doxepin HCl 10 mg PO HS 02/23/17 [History] Gabapentin [Neurontin] 300 mg PO QID 02/23/17 [History] Lisinopril/Hydrochlorothiazide [Zestoretic 20-12.5 mg Tablet] 1 each PO DAILY [History] Melatonin 5 mg PO HS PRN 02/23/17 [History] Memantine HCl/Donepezil HCl [Namzaric 28 mg-10 mg Capsule] 1 each PO DAILY 02/23 [History] Metoprolol XL (24 HR) Succ [Toprol XL] 100 mg PO DAILY 02/23/17 [History] Multivit-Min/Iron/Folic/Lutein [Centrum Silver Women Tablet] 1 each PO DAILY [History] Psyllium Husk [Daily Fiber] 0.52 gm PO DAILY 02/23/17 [History] Allergies Penicillins Allergy (Verified 02/23/17 12:04) Hives All systems: reviewed and no additional remarkable complaints except as stated Exam - Constitutional Vitals: Temp Pulse Resp BP Pulse Ox 98.4 F 89 18 116/76 96 02/25/17 11:22 02/25/17 11:22 02/25/17 11:22 02/25/17 11:22 02/25/17 11:22 General appearance: average body habitus, cooperative, no acute distress - Head Head exam: Present: atraumatic, normal inspection, normocephalic - Eye Eye exam: Present: EOMI, normal appearance, PERRL Pupils: Present: normal accommodation - ENT ENT exam: Present: mucous membranes moist - Neck Neck exam: Present: normal inspection - Respiratory Respiratory exam: Present: CTAB. Absent: rales, respiratory distress, rhonchi, wheezes - Cardiovascular Cardiovascular exam: Present: RRR, +S1, +S2 - GI/Abdominal GI/Abdominal exam: Present: normal bowel sounds, soft. Absent: distended, tenderness - Extremities Exam Extremities exam: Present: normal inspection. Absent: joint swelling, pedal edema, tenderness - Back Exam Back exam: Present: normal inspection. Absent: paraspinal tenderness, vertebral tenderness - Neurological Exam Neurological exam: Present: alert, oriented X3, no focal deficits - Psychiatric Psychiatric exam: Present: normal affect, normal mood - Skin Skin exam: Present: dry, intact, normal color, warm Infectious Disease CN: Results - Labs CBC & Chem 7: 02/26/17 06:48 02/26/17 06:48 Cultures: Cultures 02/23/17 09:38 Blood Culture - Preliminary Peripheral Venipuncture No growth. 02/23/17 09:50 Blood Culture - Preliminary Peripheral Venipuncture Gram Negative Devaughn Serology: Serology 02/23/17 02/23/17 Range/Units 09:50 09:30 Urine Color Yellow (Yellow) Urine Clarity Clear (Clear) Urine pH 5.5 (5.0-8.0) pH Units Ur Specific [place] > 1.030 H (1.010-1.025) Urine Protein Negative (Neg-Trace) mg/dL Urine Glucose (UA) >=1000 H (Normal) mg/dL Urine Ketones Trace H (Negative) mg/dL Urine Blood Small H (Negative) Urine Nitrite Negative (Negative) Urine Bilirubin Negative (Negative) Urine Urobilinogen Normal (Normal) mg/dL Ur Leukocyte Esterase Negative (Negative) Urine Microscopic RBC 0-3 (0-3) per hpf Urine Microscopic WBC 0-3 (0-3) per hpf Ur Squamous Epith Cells None Seen (None-Few) per lpf Urine Bacteria None Seen (None-Few) per hpf Hyaline Casts None Seen (None-Few) per lpf Ur Culture Indicated? NO (NO) A. baumannii (PCR) Not Detected (Not Detect) Kimberly albicans (PCR) Not Detected (Not Detect) C. glabrata (PCR) Not Detected (Not Detect) C. krusei (PCR) Not Detected (Not Detect) C. parapsilosis (PCR) Not Detected (Not Detect) C. tropicalis (PCR) Not Detected (Not Detect) Enterobacteriac sp PCR DETECTED A (Not Detect) E. cloacae complex PCR Not Detected (Not Detect) Enterococcus sp PCR Not Detected (Not Detect) E. coli (PCR) DETECTED A (Not Detect) H. influenzae (PCR) Not Detected (Not Detect) Klebsiella oxytoca PCR Not Detected (Not Detect) Klebsiella pneumoniae Not Detected (Not Detect) List. monocytogenes PCR Not Detected (Not Detect) N. meningitidis (PCR) Not Detected (Not Detect) Proteus species (PCR) Not Detected (Not Detect) Serratia marcescens PCR Not Detected (Not Detect) Staphylococcus sp PCR Not Detected (Not Detect) Staph aureus (PCR) Not Detected (Not Detect) mecA-Methicil Res Gene N/A (Not Detect) Streptococcus sp PCR Not Detected (Not Detect) Group A Strep DNA Not Detected (Not Detect) Group B Strep (PCR) Not Detected (Not Detect) Strep pneumoniae (PCR) Not Detected (Not Detect) P. aeruginosa (PCR) Not Detected (Not Detect) Riana/B-Vanco Res Genes N/A (Not Detect) KPC (blaKPC) Detect PCR Not Detected (Not Detect) Consult Discharge Plan - Plan Referrals: Kentrell Roy Jr, MD [Primary Care Provider] - 03/03/17 11:00 am - Attending Attestation I examined this patient and my medical decision-making was reviewed with the PROCESS TANK TENDER/PA/Advanced Practice Nurse/Resident Physician. I agree with the documented findings, disposition and treatment plan as described except to the extent set forth below. This is an addendum to original report dictated by Shweta Mendez CNP. Please refer to Axel motley for full detail. Patient is 76-year-old woman with a past medical history mentioned below initially came in with worsening altered mental status. Patient does have significant baseline dementia. Patient was noted to have blood sugar of 980 with slight lactic acidosis. Extensive workup was done including blood culture CT imaging which revealed no UTI, significant diverticulosis without diverticulitis and a blood culture that grew gram-negative rods Escherichia coli. We were asked to evaluate the patient and make further recommendations. Currently patient looks great sitting at bedside does not appear toxic pleasant confused family at the bedside. No obvious source of infection was identified but I have a high index of suspicion that the source is likely diverticulosis. Patient was started on Rocephin and seems to be doing okay. Repeat cultures were obtained but results are pending. X At this time we will continue with Rocephin, await cultures to finalize and susceptibility pattern to come back. Based on that we will make further decision on what antibiotics he will use and for how long. All questions for the family were answered and concerns were addressed. Well continue to follow monitor labs and for drug toxicity.
--- NOTE | 2017-02-25 14:49 | Internal Med Progress Note ---
Date of Encounter: 02/25/17 Time of Encounter: 13:55 - Subjective Interval history: Patient seen and examined at bedside. Resting in chair with present at bedside. Patient is oriented to self and but not place or time and as per her this is her baseline. Pt has been lost in follow up since last year and was never started on a DM medication regimen. She denies any discomfort at this time and reports of feeling better. states that the patient is at her baseline at this time. Patient lives with and has her daughter next door. Patient's daughter is a nurse and the both take care of the patient at home PT eval recommended STR - Assessment and plan (1) Gram-negative bacteremia Current Visit: Yes Status: Acute Assessment and plan: Of unclear etiology Clinically asymptomatic Noted to have one time reading of low grade temp Tmax of 100.0 Blood culture prellim positive for GNR will continue Ceftriaxone qd follow up official culture report if becomes febrile despite being on abx therapy, will repeat blood cultures and d/c Ceftriaxone and start Cefepime ID consultation appreciated (2) Altered mental status Current Visit: Yes Status: Acute Assessment and plan: Patient has dementia at baseline and is pleasantly confused Mental status back to baseline Qualifiers: Altered mental status type: unspecified Qualified Code(s): R41.82 - Altered mental status, unspecified (3) Hyperosmolar non-ketotic state in patient with type 2 diabetes mellitus Current Visit: Yes Status: Acute Assessment and plan: Resolved Newly onset DM HbA1C>14 will need long-term insulin therapy continue basal and short acting insulin therapy added sliding scale insulin regimen will adjust insulin therapy as per requirement monitor FS and BG ADA diet (4) KAYKAY (acute kidney injury) Current Visit: Yes Status: Acute Assessment and plan: Patient may have an underlying component of CKD baseline unknown KAYKAY is pre-renal non-oliguric from dehydration and HHS Continue to monitor chem Encourage liberal fluid intake po (5) HTN (hypertension) Current Visit: Yes Status: Chronic Assessment and plan: BP within acceptable range continue BB and Norvasc holding ACEI and HCTZ due to KAYKAY Continue to monitor Qualifiers: Hypertension type: essential hypertension Qualified Code(s): I10 - Essential (primary) hypertension (6) DVT prophylaxis Current Visit: Yes Status: Acute Assessment and plan: Heparin SQ - Constitutional Vitals: Temp Pulse Resp BP Pulse Ox 98.4 F 89 18 116/76 96 06/20/17 11:22 02/25/17 11:22 02/25/17 11:22 02/25/17 11:22 02/25/17 11:22 General appearance: Present: A&O X 1, pleasant, no acute distress - Head Head exam: Present: atraumatic, normocephalic - Eye Eye exam: Present: normal appearance, conjuntiva pink, sclera anicteric - Respiratory Respiratory exam: Absent: respiratory distress, wheezes - Cardiovascular Cardiovascular exam: Present: RRR, +S1, +S2. Absent: diastolic murmur, gallop, rubs, systolic murmur - GI/Abdominal GI/Abdominal exam: Present: normal bowel sounds, soft, no peritoneal signs. Absent: distended, tenderness - Extremities Exam Extremities exam: Present: warm, radial pulses palpable and symetrical. Absent : calf tenderness - Neurological Exam Neurological exam: Present: alert Internal Medicine: Result - Labs CBC & Chem 7: 02/25/17 08:19 02/25/17 02:40 Labs: Short CBC 02/25/17 Range/Units 08:19 WBC 8.5 (4.3-11.1) K/mcL Hgb 12.2 (11.5-15.4) g/dL Hct 36.7 (35.3-44.9) % Plt Count 176 (140-400) K/mcL Neutrophils # 5.3 (1.6-8.9) K/mcL BMP 02/25/17 02:40 Sodium 132 L D Potassium 4.3 Chloride 99 Carbon Dioxide 23 BUN 21 H Creatinine 1.21 H Glucose 296 H Calcium 9.2 - ABG Interpretation ABG results: PT/INR, D-dimer PT 10.6 Seconds (9.4-12.1) 02/23/17 09:38 - Impressions Impressions Retroperitoneum Ultrasound 02/24/17 15:00 IMPRESSION: 1. Normal sonographic appearance of the bilateral kidneys. 2. Limited evaluation of the urinary bladder, partially collapsed around a Jasso catheter. The urinary bladder is grossly normal, with a mild to moderate postvoid residual of 36%. D/ / 02/24/2017 16:13:52 Gold Dominguez MD / Laisha Jiménez Interpreting Provider: Gold Dominguez MD Consult Discharge Plan - Plan Referrals: Kentrell Roy Jr, MD [Primary Care Provider] - 03/03/17 11:00 am
[2017-02-26] MEDS: *HR* Heparin 5,000 UNIT/ML VIAL SQ SCH ×2 (06:16→17:31)
[2017-02-26 07:16] LABS: Basophils % 0.1 %; Eosinophils # 0.2 K/mcL (0.0-0.6); Eosinophils % 2.7 %; Hematocrit 35.3 % (35.3-44.9); Hemoglobin 12.1 g/dL (11.5-15.4); Lymphocytes # 2.8 K/mcL (0.6-4.6); Lymphocytes % 32.5 %; Mean Corpuscular HGB Conc 34.3 g/dL (31.6-35.5); Mean Corpuscular Hemoglobin 30.8 pg (28.0-33.3); Mean Corpuscular Volume 89.8 fL (83.0-100.0); Mean Platelet Volume 11.9 fL (9.4-12.4); Monocytes # 0.6 K/mcL (0.0-1.3); Monocytes % 6.8 %; Platelet Count 158 K/mcL (140-400); Red Blood Count 3.93 M/mcL (3.82-4.97); Red Cell Distribution Width 13.5 % (11.5-14.5); Segmented Neutrophils % 56.9 %
[2017-02-26 07:19] LABS: Calcium 8.6 mg/dL (8.6-10.8); Magnesium 1.7 mg/dL (1.6-2.6); Phosphorous 1.7 mg/dL (2.3-4.7); Potassium 3.6 mEq/L (3.5-4.5)
[2017-02-26] MEDS: Nystatin SUSP 5 ML UD.LIQ PO SCH ×4 (07:37→19:44)
[2017-02-26] MEDS: Metoprolol XL (24 HR) Succ 50 MG TAB.ER.24H PO SCH (07:38)
[2017-02-26] MEDS: Gabapentin 100 MG CAPSULE PO SCH ×2 (07:40→19:44)
[2017-02-26] MEDS: amLODIPine 5 MG TABLET PO SCH (07:40)
[2017-02-26] MEDS: Insulin LISPRO 300 UNITS/3 ML VIAL SQ SCH ×8 (07:41→22:25)
[2017-02-26] MEDS ORDERED: Sodium Phosphate 30 MMOL in D5% in Water 100 ML IVPB ONE (07:47)
[2017-02-26] MEDS: Insulin DETEMIR 100 UNIT/ML X5UNITS SQ SCH ×2 (08:37→22:25)
--- NOTE | 2017-02-26 11:12 | Internal Med Progress Note ---
Date of Encounter: 02/26/17 Time of Encounter: 11:08 - Subjective Interval history: Patient seen and examined at bedside. Resting in bed with present at bedside. Patient remains only oriented to self and family members which is patient's baseline as per . She denies any discomfort at this time. PT eran recommended STR however family refusing rehab care. Unable to get in touch with the daughter who is the POA (Julissa Blanco [phone]), will attempt again to get in touch with the POA as patient will benefit from SNF placement. - Assessment and plan (1) Gram-negative bacteremia Current Visit: Yes Status: Acute Assessment and plan: Of unclear etiology Clinically asymptomatic Blood culture prelim positive for GNR will continue Ceftriaxone qd follow up official culture report if becomes febrile despite being on abx therapy, will repeat blood cultures and d/c Ceftriaxone and start Cefepime ID consultation appreciated (2) Altered mental status Current Visit: Yes Status: Acute Assessment and plan: Patient has dementia at baseline and is pleasantly confused Mental status back to baseline Qualifiers: Altered mental status type: unspecified Qualified Code(s): R41.82 - Altered mental status, unspecified (3) Hyperosmolar non-ketotic state in patient with type 2 diabetes mellitus Current Visit: Yes Status: Acute Assessment and plan: Resolved Newly onset DM HbA1C>14 will need prison insulin therapy continue basal and short acting insulin therapy added sliding scale insulin regimen increased Levemir to 10units BID and Novolog to 6units TIDAC monitor FS and BG ADA diet (4) KAYKAY (acute kidney injury) Current Visit: Yes Status: Acute Assessment and plan: Patient may have an underlying component of CKD baseline unknown KAYKAY is pre-renal non-oliguric from dehydration and HHS Continue to monitor chem Encourage liberal fluid intake po renal function improving (5) HTN (hypertension) Current Visit: Yes Status: Chronic Assessment and plan: BP within acceptable range continue BB and Norvasc holding ACEI and HCTZ due to KAYKAY Continue to monitor Qualifiers: Hypertension type: essential hypertension Qualified Code(s): I10 - Essential (primary) hypertension (6) DVT prophylaxis Current Visit: Yes Status: Acute Assessment and plan: Heparin SQ (7) Electrolyte abnormality Current Visit: Yes Status: Acute Hypomagnesemia Mg supplemented continue to monitor electrolytes and supplement as needed - Constitutional Vitals: Temp Pulse Resp BP Pulse Ox 99.3 F 95 15 147/72 93 02/26/17 07:15 02/26/17 08:23 02/26/17 07:15 02/26/17 07:15 02/26/17 07:15 General appearance: Present: A&O X 1, pleasant, no acute distress - Head Head exam: Present: atraumatic, normocephalic - Eye Eye exam: Present: normal appearance, conjuntiva pink, sclera anicteric - Respiratory Respiratory exam: Present: CTAB. Absent: accessory muscle use, rales, rhonchi, wheezes - Cardiovascular Cardiovascular exam: Present: RRR, +S1, +S2. Absent: diastolic murmur, gallop, rubs, systolic murmur - GI/Abdominal GI/Abdominal exam: Present: normal bowel sounds, soft. Absent: distended, tenderness - Extremities Exam Extremities exam: Present: warm, radial pulses palpable and symetrical. Absent : pedal edema - Neurological Exam Neurological exam: Present: alert - Psychiatric Psychiatric exam: Present: normal affect, normal mood Internal Medicine: Result - Labs CBC & Chem 7: 02/26/17 06:48 02/26/17 06:48 Labs: Short CBC 02/26/17 Range/Units 06:48 WBC 8.7 (4.3-11.1) K/mcL Hgb 12.1 (11.5-15.4) g/dL Hct 35.3 (35.3-44.9) % Plt Count 158 (140-400) K/mcL Neutrophils # 5.0 (1.6-8.9) K/mcL BMP 02/26/17 06:48 Sodium 134 L Potassium 3.6 Chloride 103 Carbon Dioxide 22 BUN 27 H Creatinine 1.14 H Glucose 198 H Calcium 8.6 - ABG Interpretation ABG results: PT/INR, D-dimer PT 10.6 Seconds (9.4-12.1) 02/23/17 09:38 Consult Discharge Plan - Plan Referrals: Kentrell Roy Jr, MD [Primary Care Provider] - 03/03/17 11:00 am
--- NOTE | 2017-02-26 12:12 | Infectious Disease Progress No ---
Date of Encounter: 02/26/17 Time of Encounter: 12:10 - Assessment and Plan (1) Sepsis Current Visit: Yes Status: Acute The patient had two SIRS criteria including one episode of fever and tachycardia. Likely secondary to bacteremia. Improved. The patient has not had any further tachycardia or fever. Blood cultures drawn 02/23/17 are positive 1/2 sets for E. coli. Repeat blood cultures drawn 02/24/17 are NGTD x 2 sets. Qualifiers: Sepsis type: Escherichia coli Qualified Code(s): A41.51 - Sepsis due to Escherichia coli [E. coli] (2) Gram-negative bacteremia Current Visit: Yes Status: Acute Causative organism E. coli. Source unclear. The patient has no sepsis criteria. UA negative. Abdominal exam benign. CT of the abdomen and pelvis without contrast shows a liver lesion of unknown significance. There is severe diverticulosis noted on the CT as well, but no evidence of diverticulitis. CXR negative. The patient has no indwelling lines. Blood cultures drawn 02/23/17 are positive 1/2 sets for E. coli that is rae- sensitive. Repeat blood cultures drawn 02/24/17 are NGTD. Discontinue Rocephin. Start Levaquin 750mg IV Q48H --> dosed for CrCl~43. Duration of treatment depends on the clinical picture, but recommend a total of 14 days of antibiotics from the first set of negative blood cultures. Treat through 03/10/17. Can switch to oral when ready for discharge. Monitor renal function and dose-adjust antibiotics. (3) Hyperosmolar non-ketotic state in patient with type 2 diabetes mellitus Current Visit: Yes Status: Acute Secondary to undiagnosed/untreated diabetes. Improved. Management per the primary team. (4) KAYKAY (acute kidney injury) Current Visit: Yes Status: Acute Serum creatinine 2.76 on admission. Likely secondary to poor PO intake/dehydration. Resolved. Continue to trend. (5) Altered mental status Current Visit: Yes Status: Acute Likely multifactorial --> dementia + hyperglycemia + bacteremia CT head negative. According to the patient's , the patient appears to be back at baseline. Qualifiers: Altered mental status type: unspecified Qualified Code(s): R41.82 - Altered mental status, unspecified (6) Liver lesion Current Visit: Yes Status: Acute CT of the abdomen and pelvis without contrast shows a 2.1 x 1.1 cm low- attenuation liver lesion. Etiology unclear. Abdominal exam benign. (7) Fall Current Visit: Yes Status: Acute Unwitnessed, but per the patient's , the patient fell in the bathroom a few days prior to admission. Mechanism of fall unclear, but patient denies injury. CT of the C-spine and L-spine negative for acute abnormality. Continue falls precautions and utilize bed alarm when patient alone in the room. 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 No evidence of perforation or diverticulitis. (9) Diverticulosis Current Visit: Yes Status: Chronic Qualifiers: Diverticulosis site: unspecified location Diverticulosis bleeding: diverticulosis with bleeding Qualified Code(s): K57.91 - Diverticulosis of intestine, part unspecified, without perforation or abscess with bleeding (10) HTN (hypertension) Current Visit: Yes Status: Chronic Qualifiers: Hypertension type: essential hypertension Qualified Code(s): I10 - Essential (primary) hypertension (11) Diabetes mellitus Current Visit: Yes Status: Acute Previously diagnosed, but patient was lost to follow-up. HgbA1C >14 on arrival. Management per the primary team. Qualifiers: Diabetes mellitus type: other specified (including AMANDA) Diabetes mellitus complication status: with hyperglycemia Diabetes mellitus senior care insulin use: unspecified termite control servicer insulin use status Qualified Code(s): E13.65 - Other specified diabetes mellitus with hyperglycemia - Subjective Interval history: Patient seen and examined. No acute events noted overnight. Patient lying in bed. Awakens easily to verbal stimuli. States that overall she feels well. Denies fevers, chills, or rigors. Denies chest pain, shortness of breath, or cough. Denies nausea, vomiting, or constipation. Reports a loose stool this morning. Denies urinary complaints. Complains of chronic back pain. Denies oral thrush or skin lesions. Infect Dis PN-Objective Data - Labs CBC & Chem 7: 02/26/17 06:48 02/26/17 06:48 Labs: Laboratory Results - last 24 hr 02/25/17 02/25/17 02/26/17 07:43 12:15 06:48 WBC 8.7 RBC 3.93 Hgb 12.1 Hct 35.3 MCV 89.8 MCH 30.8 MCHC 34.3 RDW 13.5 Plt Count 158 MPV 11.9 Immature Gran % 1.0 Seg Neutrophils % 56.9 Lymphocytes % 32.5 Monocytes % 6.8 Eosinophils % 2.7 Basophils % 0.1 Neutrophils # 5.0 Lymphocytes # 2.8 Monocytes # 0.6 Eosinophils # 0.2 Basophils # 0.0 Sodium Potassium Chloride Carbon Dioxide BUN Creatinine Est GFR ( Amer) Est GFR (Non-Af Amer) BUN/Creatinine Ratio Glucose POC Glucose 272 H 353 H Calculated Osmolality Calcium Phosphorus Magnesium 02/26/17 06:48 WBC RBC Hgb Hct MCV MCH MCHC RDW Plt Count MPV Immature Gran % Seg Neutrophils % Lymphocytes % Monocytes % Eosinophils % Basophils % Neutrophils # Lymphocytes # Monocytes # Eosinophils # Basophils # Sodium 134 L Potassium 3.6 Chloride 103 Carbon Dioxide 22 BUN 27 H Creatinine 1.14 H Est GFR ( Amer) 56 L Est GFR (Non-Af Amer) 46 L BUN/Creatinine Ratio 24 Glucose 198 H POC Glucose Calculated Osmolality 289 Calcium 8.6 Phosphorus 1.7 L Magnesium 1.7 Cultures: Cultures 02/24/17 14:41 Blood Culture - Preliminary Peripheral Venipuncture No growth. 02/24/17 14:36 Blood Culture - Preliminary Peripheral Venipuncture No growth. Exam - Constitutional Vitals: Temp Pulse Resp BP Pulse Ox 98.7 F 82 15 115/60 97 02/26/17 11:42 02/26/17 11:42 02/26/17 11:42 02/26/17 11:42 02/26/17 11:42 General appearance: average body habitus, cooperative, no acute distress - Head Head exam: Present: atraumatic, normal inspection, normocephalic - Eye Eye exam: Present: EOMI, normal appearance, PERRL Pupils: Present: normal accommodation - ENT ENT exam: Present: mucous membranes moist - Neck Neck exam: Present: normal inspection - Respiratory Respiratory exam: Present: CTAB. Absent: rales, respiratory distress, rhonchi, wheezes - Cardiovascular Cardiovascular exam: Present: RRR, +S1, +S2 - GI/Abdominal GI/Abdominal exam: Present: normal bowel sounds, soft. Absent: distended, tenderness - Extremities Exam Extremities exam: Present: normal inspection. Absent: joint swelling, pedal edema, tenderness - Neurological Exam Neurological exam: Present: alert. Absent: oriented X3 (Oriented to person and place only.), no focal deficits - Psychiatric Psychiatric exam: Present: normal affect, normal mood - Skin Skin exam: Present: dry, intact, normal color, warm Consult Discharge Plan - Plan Referrals: Kentrell Roy Jr, MD [Primary Care Provider] - 03/03/17 11:00 am - Attending Attestation I examined this patient and my medical decision-making was reviewed with the LIME KILN WORKER/PA/Advanced Practice Nurse/Resident Physician. I agree with the documented findings, disposition and treatment plan as described except to the extent set forth below.
[2017-02-26] MEDS ORDERED: Levofloxacin 750 MG/150 ML 750 MG/150 ML BAG IVPB SCH (14:00)
[2017-02-26] MEDS ORDERED: *HR* LORazepam 0.5 MG TABLET PO ONE (17:49)
[2017-02-26] MEDS ORDERED: Ibuprofen 400 MG TABLET PO PRN (22:14)
[2017-02-27 04:31] LABS: Basophils % 0.5 %; Eosinophils # 0.2 K/mcL (0.0-0.6); Eosinophils % 2.9 %; Hematocrit 34.5 % (35.3-44.9); Hemoglobin 11.4 g/dL (11.5-15.4); Immature Granulocytes % 2.1 % (0-4); Lymphocytes # 2.4 K/mcL (0.6-4.6); Lymphocytes % 28.3 %; Mean Corpuscular Hemoglobin 29.9 pg (28.0-33.3); Mean Corpuscular Volume 90.6 fL (83.0-100.0); Mean Platelet Volume 12.2 fL (9.4-12.4); Monocytes # 0.7 K/mcL (0.0-1.3); Monocytes % 7.9 %; Neutrophils # 4.9 K/mcL (1.6-8.9); Platelet Count 165 K/mcL (140-400); Red Blood Count 3.81 M/mcL (3.82-4.97); Red Cell Distribution Width 13.6 % (11.5-14.5); Segmented Neutrophils % 58.3 %
[2017-02-27] MEDS ORDERED: *HR* LORazepam 2 MG/ML VIAL IVP ONE (04:52)
[2017-02-27 04:53] LABS: Calcium 8.2 mg/dL (8.6-10.8); Magnesium 1.6 mg/dL (1.6-2.6); Phosphorous 2.3 mg/dL (2.3-4.7); Potassium 3.6 mEq/L (3.5-4.5)
[2017-02-27] MEDS: Insulin LISPRO 300 UNITS/3 ML VIAL SQ SCH ×4 (07:43→11:19)
[2017-02-27] MEDS: *HR* Heparin 5,000 UNIT/ML VIAL SQ SCH (07:45)
[2017-02-27] MEDS: Insulin DETEMIR 100 UNIT/ML X5UNITS SQ SCH (07:47)
[2017-02-27] MEDS: Nystatin SUSP 5 ML UD.LIQ PO SCH ×2 (07:49→11:23)
[2017-02-27] MEDS: amLODIPine 5 MG TABLET PO SCH (07:50)
[2017-02-27] MEDS: Gabapentin 100 MG CAPSULE PO SCH (07:51)
[2017-02-27] MEDS: Metoprolol XL (24 HR) Succ 50 MG TAB.ER.24H PO SCH (07:51)
[2017-02-27 10:38] VITALS: BP 111/67
--- NOTE | 2017-02-27 11:09 | Discharge Summary ---
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 (3) Hyperosmolar non-ketotic state in patient with type 2 diabetes mellitus Priority: Primary Status: Resolved (4) KAYKAY (acute kidney injury) Priority: Secondary Status: Acute (5) HTN (hypertension) Priority: Secondary Status: Chronic Qualifiers: Hypertension type: essential hypertension Qualified Code(s): I10 - Essential (primary) hypertension (6) DVT prophylaxis Priority: Secondary Status: Acute (7) Gram-negative bacteremia Priority: Primary Status: Acute - Discharge Medications Prescriptions: amLODIPine [Norvasc] 10 mg PO DAILY #30 tablet Gabapentin [Neurontin] 100 mg PO BID #30 capsule Insulin ASPART [Novolog Flexpen] 6 unit SQ TIDWM #5 insuln.pen Insulin DETEMIR [Levemir Flextouch] 10 unit SQ BID #5 insuln.pen levoFLOXacin [Levaquin] 750 mg PO Q48H #6 tablet LORazepam [Ativan] 0.5 mg PO HS PRN #5 tablet PRN Reason: Anxiety/agitation Home Medications: Black Burnett 1 tab PO DAILY 02/23/17 [History] Calcium Carbonate/Vitamin D3 [Calcium 600 + Vit D Softgel] 1 each PO DAILY 02/23 [History] Citalopram Hydrobromide [Citalopram HBr] 10 mg PO DAILY 02/23/17 [History] Doxepin HCl 10 mg PO HS 02/23/17 [History] Melatonin 5 mg PO HS PRN 02/23/17 [History] Memantine HCl/Donepezil HCl [Namzaric 28 mg-10 mg Capsule] 1 each PO DAILY 02/23 [History] Metoprolol XL (24 HR) Succ [Toprol Xl] 100 mg PO DAILY 02/23/17 [History] Multivit-Min/Iron/Folic/Lutein [Centrum Silver Women Tablet] 1 each PO DAILY [History] Psyllium Husk [Daily Fiber] 0.52 gm PO DAILY 02/23/17 [History] Gabapentin [Neurontin] 100 mg PO BID #30 capsule 02/27/17 [Rx] Insulin ASPART [Novolog Flexpen] 6 unit SQ TIDWM #5 insuln.pen 02/27/17 [Rx] Insulin DETEMIR [Levemir Flextouch] 10 unit SQ BID #5 insuln.pen 02/27/17 [Rx] LORazepam [Ativan] 0.5 mg PO HS PRN #5 tablet 02/27/17 [Rx] amLODIPine [Norvasc] 10 mg PO DAILY #30 tablet 02/27/17 [Rx] levoFLOXacin [Levaquin] 750 mg PO Q48H #6 tablet 02/27/17 [Rx] Allergies/Adverse Reactions: Allergies Penicillins Allergy (Verified 02/23/17 12:04) Hives Procedures/tests Complete & Pending: Procedures Performed prior 72 hours Category Date Time Status US retroperitoneal comp [US] Routine Exams 02/24/17 15:00 Completed EV echocardiogram Routine Y 02/25/17 16:44 Completed Date of admission: 02/23/17 16:37 Primary care physician: Kentrell Roy Jr, MD Consults: 02/24/17 16:44 Consult to Infectious Diseases [CONS] Routine Consulting Provider: Infectious Disease Kerrick Reason for Consult: Gram negative bactermia, no obvious source, patient with no SIRS/Sepsis criteria Call Completed: No 02/25/17 11:14 consult to ep specialist [Consult to Nutrition] [CONS] Routine Comment: Consulting Provider: NUTRITION Reason for Dietary Consult: Diet Education Other:: Newly diagnosed DM. 02/25/17 14:11 Consult to Occupational Therapy [CONS] Routine Comment: Evaluate, develop and implement POC Reason for Consult: discharge planning Discharging clinician: Edith Koch Anticipated date of discharge: 02/27/17 - Patient Status Disposition: Home Health Service Condition: Fair Functional capacity at discharge: uses cane/walker Overall status at discharge: patient is back to baseline - Discharge Instructions Follow Up With: Kentrell Roy Jr, MD [Primary Care Provider] - 03/03/17 11:00 am Additional Instructions: Please follow up with your primary care physician within five days after your discharge from the hospital. Your home dose of Lisinopril/Hydrochlorothiazide has been discontinued due to your renal function. Amlodipine has been added for your blood pressure control. Please closely monitor your blood pressure and hold Amlodipine if SBP<110. Hold Metoprolol if your SBP<100. Please obtain your prescribed lab work prior to your appointment with your primary care physician to monitor your renal function. Your home dose of Gabapentin has been adjusted according your renal function. It has been decreased to 100mg twice a day. Please continue oral antibiotics as prescribed. Levofloxacin every other day. Last day of antibiotic: March 10, 2017. Closely monitor your fingerstick glucose at home. Monitor FS as listed and keep a log of these readings. Monitor it fasting, premeals, two hours after meals, and at bedtime. You are being started on Levemir 10units SQ twice a day and Novolog 6units three times a day with meals. Please resume all your home medications as prescribed by your primary care physician. - Diet and Activity Activity: as per physical therapy Diet: diabetic diet, low salt diet Hospital course: Ms. Blanco is a 76 year old female with history dementia, HTN who was admitted for worsening mental status. Patient was found to have HHS secondary to uncontrolled DM and bacteremia of unknown etiology. She was started on insulin therapy and empiric IV abx. She responded appropriately to therapy with return of mental status to baseline. Pt was evaluated by physical therapy and ECF was recommended, however as per patient's family's request/POA (Julissa Blanco) patient is to be discharged to home with home health. Patient was diagnosed with DM last year but never had a follow up and was not on any antihyperglycemic agents. She was started on insulin therapy to which she responded appropriately. She was evaluated by ID and abx course and duration was addressed. She was also noted to have KAYKAY due to which her home dose of Lisinopril/HCTZ was placed on hold. Amlodipine was added for BP control. AT this time she is hemodynamically stable and will be discharged to home under the care of her family. Her daughter reports of being a nurse along with other family members in the healthcare field and will take care of the patient. - Time Spent with Patient Total time spent providing and/or coordinating discharge services: Greater than 30 minutes - Constitutional Vitals: Temp Pulse Resp BP Pulse Ox 97.9 F 84 19 111/67 96 02/27/17 10:34 02/27/17 10:34 02/27/17 10:34 02/27/17 10:34 02/27/17 10:34 General appearance: Present: A&O X 1, pleasant, no acute distress - Head Head exam: Present: atraumatic, normocephalic - Eye Eye exam: Present: normal appearance, conjuntiva pink, sclera anicteric - Respiratory Respiratory exam: Absent: respiratory distress, wheezes - Cardiovascular Cardiovascular exam: Present: RRR, +S1, +S2 - GI/Abdominal GI/Abdominal exam: Present: normal bowel sounds, soft, no peritoneal signs. Absent: distended, tenderness - Extremities Exam Extremities exam: Present: warm, radial pulses palpable and symetrical. Absent : calf tenderness - Neurological Exam Neurological exam: Present: alert - Psychiatric Psychiatric exam: Present: normal affect, normal mood
--- NOTE | 2017-02-27 11:31 | Physician Discharge Referral ---
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 For more information, call the [place] Tobacco Quit Line at 1-907-BOXM-NOW. - Services Needed Following services are medically necessary services: Nursing, Home Health Aide, Physical Therapy, Occupational Therapy - Transfer Medications Prescriptions: amLODIPine [Norvasc] 10 mg PO DAILY #30 tablet Gabapentin [Neurontin] 100 mg PO BID #30 capsule Insulin ASPART [Novolog Flexpen] 6 unit SQ TIDWM #5 insuln.pen Insulin DETEMIR [Levemir Flextouch] 10 unit SQ BID #5 insuln.pen levoFLOXacin [Levaquin] 750 mg PO Q48H #6 tablet LORazepam [Ativan] 0.5 mg PO HS PRN #5 tablet PRN Reason: Anxiety/agitation Home Medications: Black [place]ett 1 tab PO DAILY 02/23/17 [History] Calcium Carbonate/Vitamin D3 [Calcium 600 + Vit D Softgel] 1 each PO DAILY 02/23 [History] Citalopram Hydrobromide [Citalopram HBr] 10 mg PO DAILY 02/23/17 [History] Doxepin HCl 10 mg PO HS 02/23/17 [History] Melatonin 5 mg PO HS PRN 02/23/17 [History] Memantine HCl/Donepezil HCl [Namzaric 28 mg-10 mg Capsule] 1 each PO DAILY 02/23 [History] Metoprolol XL (24 HR) Succ [Toprol Xl] 100 mg PO DAILY 02/23/17 [History] Multivit-Min/Iron/Folic/Lutein [Centrum Silver Women Tablet] 1 each PO DAILY [History] Psyllium Husk [Daily Fiber] 0.52 gm PO DAILY 02/23/17 [History] Gabapentin [Neurontin] 100 mg PO BID #30 capsule 02/27/17 [Rx] Insulin ASPART [Novolog Flexpen] 6 unit SQ TIDWM #5 insuln.pen 02/27/17 [Rx] Insulin DETEMIR [Levemir Flextouch] 10 unit SQ BID #5 insuln.pen 02/27/17 [Rx] LORazepam [Ativan] 0.5 mg PO HS PRN #5 tablet 02/27/17 [Rx] amLODIPine [Norvasc] 10 mg PO DAILY #30 tablet 02/27/17 [Rx] levoFLOXacin [Levaquin] 750 mg PO Q48H #6 tablet 02/27/17 [Rx] Allergies/Adverse Reactions: Allergies Penicillins Allergy (Verified 02/23/17 12:04) Hives Certification: Further, I certify that my clinical findings support that this patient is homebound (i.e. absences from home require considerable and taxing effort and are for medical reasons or mormonism services or infrequently or short duration when for other reasons) because: Homebound Reason: Patient requires assistance of a person or device to safely leave home Attestation: My signature below is to certify that this patient is under my care and that I, or nurse practitioner, or a physician's assistant manager airside operations working with me, has a face-to -face encounter with this patient.
--- NOTE | 2017-02-27 13:36 | Infectious Disease Progress No ---
Date of Encounter: 02/27/17 Time of Encounter: 10:30 - Assessment and Plan (1) Sepsis Status: Acute The patient had two SIRS criteria including one episode of fever and tachycardia. Likely secondary to bacteremia. Resolved. The patient has not had any further tachycardia or fever. Blood cultures drawn 02/23/17 are positive 1/2 sets for E. coli. Repeat blood cultures drawn 02/24/17 are NGTD x 2 sets. Qualifiers: Sepsis type: Escherichia coli Qualified Code(s): A41.51 - Sepsis due to Escherichia coli [E. coli] (2) Gram-negative bacteremia Status: Acute Causative organism E. coli. Source unclear. The patient has no sepsis criteria. UA negative. Abdominal exam benign. CT of the abdomen and pelvis without contrast shows a liver lesion of unknown significance. There is severe diverticulosis noted on the CT as well, but no evidence of diverticulitis. CXR negative. The patient has no indwelling lines. Blood cultures drawn 02/23/17 are positive 1/2 sets for E. coli that is rae- sensitive. Repeat blood cultures drawn 02/24/17 are NGTD. Continue Levaquin 750mg IV Q48H --> dosed for CrCl~43. Duration of treatment depends on the clinical picture, but recommend a total of 14 days of antibiotics from the first set of negative blood cultures. Treat through 03/10/17. Can switch to oral when ready for discharge. Monitor renal function and dose-adjust antibiotics. (3) Hyperosmolar non-ketotic state in patient with type 2 diabetes mellitus Status: Resolved Secondary to undiagnosed/untreated diabetes. Improved. Management per the primary team. (4) KAYKAY (acute kidney injury) Status: Acute Serum creatinine 2.76 on admission. Likely secondary to poor PO intake/dehydration. Improved. Continue to trend. (5) Altered mental status Status: Resolved Likely multifactorial --> dementia + hyperglycemia + bacteremia CT head negative. According to the patient's , the patient appears to be back at baseline. Qualifiers: Altered mental status type: unspecified Qualified Code(s): R41.82 - Altered mental status, unspecified (6) Liver lesion Status: Acute CT of the abdomen and pelvis without contrast shows a 2.1 x 1.1 cm low- attenuation liver lesion. Etiology unclear. Abdominal exam benign. (7) Fall Status: Acute Unwitnessed, but per the patient's , the patient fell in the bathroom a few days prior to admission. Mechanism of fall unclear, but patient denies injury. CT of the C-spine and L-spine negative for acute abnormality. Continue falls precautions and utilize bed alarm when patient alone in the room. Qualifiers: Encounter type: initial encounter Qualified Code(s): W19.XXXA - Unspecified fall, initial encounter (8) Duodenal diverticulum Status: Chronic Noted on CT of the abdomen and pelvis. No evidence of perforation or diverticulitis. (9) Diverticulosis Status: Chronic Qualifiers: Diverticulosis site: unspecified location Diverticulosis bleeding: diverticulosis with bleeding Qualified Code(s): K57.91 - Diverticulosis of intestine, part unspecified, without perforation or abscess with bleeding (10) HTN (hypertension) Status: Chronic Qualifiers: Hypertension type: essential hypertension Qualified Code(s): I10 - Essential (primary) hypertension (11) Diabetes mellitus Status: Acute Previously diagnosed, but patient was lost to follow-up. HgbA1C >14 on arrival. Management per the primary team. Qualifiers: Diabetes mellitus type: other specified (including AMANDA) Diabetes mellitus complication status: with hyperglycemia Diabetes mellitus longterm insulin use: unspecified meterman insulin use status Qualified Code(s): E13.65 - Other specified diabetes mellitus with hyperglycemia - Subjective Interval history: Patient seen and examined. No acute events noted overnight. Patient lying in bed with her family at bedside. Awakens easily to verbal stimuli. States that overall she feels well. Denies fevers, chills, or rigors. Denies chest pain, shortness of breath, or cough. Denies nausea, vomiting, or constipation. Denies diarrhea. Denies urinary complaints. Complains of chronic back pain. Denies oral thrush or skin lesions. Infect Dis PN-Objective Data - Labs CBC & Chem 7: 02/27/17 03:38 02/27/17 03:38 Labs: Laboratory Results - last 24 hr 02/25/17 02/25/17 02/26/17 16:21 20:31 07:19 WBC RBC Hgb Hct MCV MCH MCHC RDW Plt Count MPV Immature Gran % Seg Neutrophils % Lymphocytes % Monocytes % Eosinophils % Basophils % Neutrophils # Lymphocytes # Monocytes # Eosinophils # Basophils # Sodium Potassium Chloride Carbon Dioxide BUN Creatinine Est GFR ( Amer) Est GFR (Non-Af Amer) BUN/Creatinine Ratio Glucose POC Glucose 275 H 237 H 220 H Calculated Osmolality Calcium Phosphorus Magnesium 02/26/17 02/26/17 02/27/17 11:45 20:39 03:38 WBC 8.4 RBC 3.81 L Hgb 11.4 L Hct 34.5 L MCV 90.6 MCH 29.9 MCHC 33.0 RDW 13.6 Plt Count 165 MPV 12.2 Immature Gran % 2.1 Seg Neutrophils % 58.3 Lymphocytes % 28.3 Monocytes % 7.9 Eosinophils % 2.9 Basophils % 0.5 Neutrophils # 4.9 Lymphocytes # 2.4 Monocytes # 0.7 Eosinophils # 0.2 Basophils # 0.0 Sodium Potassium Chloride Carbon Dioxide BUN Creatinine Est GFR ( Amer) Est GFR (Non-Af Amer) BUN/Creatinine Ratio Glucose POC Glucose 306 H 328 H Calculated Osmolality Calcium Phosphorus Magnesium 02/27/17 03:38 WBC RBC Hgb Hct MCV MCH MCHC RDW Plt Count MPV Immature Gran % Seg Neutrophils % Lymphocytes % Monocytes % Eosinophils % Basophils % Neutrophils # Lymphocytes # Monocytes # Eosinophils # Basophils # Sodium 137 Potassium 3.6 Chloride 103 Carbon Dioxide 22 BUN 33 H Creatinine 1.32 H Est GFR ( Amer) 47 L Est GFR (Non-Af Amer) 39 L BUN/Creatinine Ratio 25 Glucose 119 H POC Glucose Calculated Osmolality 292 Calcium 8.2 L Phosphorus 2.3 Magnesium 1.6 Cultures: Cultures 02/26/17 06:48 Blood Culture - Preliminary Peripheral Venipuncture No growth. 02/24/17 14:41 Blood Culture - Preliminary Peripheral Venipuncture No growth. 02/24/17 14:36 Blood Culture - Preliminary Peripheral Venipuncture No growth. Exam - Constitutional Vitals: Temp Pulse Resp BP Pulse Ox 97.9 F 74 19 111/67 96 02/27/17 10:34 02/27/17 12:01 02/27/17 10:34 02/27/17 10:34 02/27/17 10:34 General appearance: average body habitus, cooperative, no acute distress - Head Head exam: Present: atraumatic, normal inspection, normocephalic - Eye Eye exam: Present: EOMI, normal appearance, PERRL Pupils: Present: normal accommodation - ENT ENT exam: Present: mucous membranes moist - Neck Neck exam: Present: normal inspection - Respiratory Respiratory exam: Present: CTAB. Absent: rales, respiratory distress, rhonchi, wheezes - Cardiovascular Cardiovascular exam: Present: RRR, +S1, +S2 - GI/Abdominal GI/Abdominal exam: Present: normal bowel sounds, soft. Absent: distended, tenderness - Extremities Exam Extremities exam: Present: normal inspection. Absent: joint swelling, pedal edema, tenderness - Neurological Exam Neurological exam: Present: alert, no focal deficits. Absent: oriented X3 ( Oriented to person only.) - Psychiatric Psychiatric exam: Present: normal affect, normal mood - Skin Skin exam: Present: dry, intact, normal color, warm Consult Discharge Plan - Plan Instructions: Diabetes Mellitus Type 2 in Adults (DC) Additional Instructions: Please follow up with your primary care physician within five days after your discharge from the hospital. Your home dose of Lisinopril/Hydrochlorothiazide has been discontinued due to your renal function. Amlodipine has been added for your blood pressure control. Please closely monitor your blood pressure and hold Amlodipine if SBP<110. Hold Metoprolol if your SBP<100. Please obtain your prescribed lab work prior to your appointment with your primary care physician to monitor your renal function. Your home dose of Gabapentin has been adjusted according your renal function. It has been decreased to 100mg twice a day. Please continue oral antibiotics as prescribed. Levofloxacin every other day. Last day of antibiotic: March 10, 2017. Closely monitor your fingerstick glucose at home. Monitor FS as listed and keep a log of these readings. Monitor it fasting, premeals, two hours after meals, and at bedtime. You are being started on Levemir 10units SQ twice a day and Novolog 6units three times a day with meals. Please resume all your home medications as prescribed by your primary care physician. Referrals: Kentrell Roy Jr, MD [Primary Care Provider] - 03/03/17 11:00 am Prescriptions: amLODIPine [Norvasc] 10 mg PO DAILY #30 tablet Gabapentin [Neurontin] 100 mg PO BID #30 capsule Insulin ASPART [Novolog Flexpen] 6 unit SQ TIDWM #5 insuln.pen Insulin DETEMIR [Levemir Flextouch] 10 unit SQ BID #5 insuln.pen levoFLOXacin [Levaquin] 750 mg PO Q48H #6 tablet LORazepam [Ativan] 0.5 mg PO HS PRN #5 tablet PRN Reason: Anxiety/agitation - Attending Attestation I examined this patient and my medical decision-making was reviewed with the DOCTOR OF OSTEOPATHY/PA/Advanced Practice Nurse/Resident Physician. I agree with the documented findings, disposition and treatment plan as described except to the extent set forth below.
--- NOTE | 2017-02-28 14:54 | Electrocardiograph Report ---
[place] [address] Test Date: 2017-02-23 Pat Name: Andreea Blanco Department: 102 Room: 2N11 Gender: F Repair Mechanic: Jeanie : [id number] Requested By: Garrett Yin Order Number: [id number] Reading MD: Anay Montgomery Measurements Intervals [place] Rate: 79 P: 40 AL: 146 QRS: -17 QRSD: 100 T: 25 QT: 407 QTc: 441 Interpretive Statements SINUS RHYTHM POSSIBLE LEFT ATRIAL ENLARGEMENT [-0.1mV P WAVE IN V1/V2] POSSIBLE LEFT VENTRICULAR HYPERTROPHY [VOLTAGE CRITERIA PLUS LAE OR QRS WIDENING] Electronically Signed On 02-28-2017 14:52:21 EDT by Anay Montgomery
== END 2017-02-27 14:56 | disposition home health service (06) | DRG 871 ==
LOC: EMEROO 09:07 → 2NNU 09:07 → SUATTDRO 16:37
PROVIDERS: ADMIT Internal Medicine; ATTEND Internal Medicine